=== PATIENT | female | born 1975 | race Caucasian/White ===

== ENCOUNTER 2023-03-28 10:52 | Observation (INO) ==
--- NOTE | 2023-03-19 13:10 | History & Physical Report ---
Date of Service February Assessment & Plan (1) Mandibular retrognathism: (2) Excessive horizontal overlap: (3) Mandibular hypoplasia: (4) Failing dental implant: History of Present Illness Primary Care Provider: VIJI Mcelroy Ilana is now ready to consider the surgery to correct her jaw deformity and functional impairments. 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 She would like to plan the surgery during her off season which is between Jan and early April. I updated her case and changes which will effect the final treatment plan as well as restorationism of her teeth post op. I have finalize the treatment plan with Dr Melissa Sneed ([place]) A CT was was reviewed to help plan the surgery and evaluate the bone quality and nerve relationship to the osteotomy sites. The surgical appliance was placed and checked for fit. 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 Clinical and radiographic examination revealed that Ilana has a significant skeletal malocclusion. This is associated with an abnormal growth of both the upper and lower jaw. Mandibular Retrognathism M26.04 Deep bite closed vertical M26.23 The goal of this proposed jaw surgery is to re-establish the functional capacity of the patient`s bite. This has been brought about primarily by an unbalanced jaw relationship and resulting lack of occlusion. My patient`s main complaint is difficulty with mastication and chronic lip,tongue and cheek bitting. The primary goal of this treatment is to restore normal function through restorationism of proper jaw position. The deformity is not correctable by orthodontic alone and surgery is medically necessary.We are preforming this procedure to obtain a function jaw relationship. The planed surgery will be preformed in the OR of [facility] in [place], [place]. A 23 hour observation following the surgery is planned.This surgery should be considered medically necessary for the patient`s well-being. Medical Indication For Reconstructive Jaw Surgery The discrepancy between the upper and lower jaw has resulted in a significant skeletal deformity. I propose the following surgical procedures to correct this skeletal malocclusion. Sagittal Osteotomy CPT 28091 Surgical [address] interdental fixation CPT 22944 I had the opportunity to evaluate Ilana Pereira in my office for an obvious jaw deformity. Clinical and radiographic examination revealed a significant facial skeletal malocclusion which can not be correct by standard orthodontic management alone. As a result of this deformity a significant functional impairment in mastication exists. This is associated with a horizontal, vertical and transverse deformity of the maxilla and mandible. The patient has only 6 upper teeth and full dental/implant reconstruction on the lower. The dentist who placed the implants had no regard for her significant class II deep bite. The patient has the following diagnostic codes: Mandibular Retrognathism with deep bite M26.04 The discrepancy between the upper and lower jaws has resulted in the following significant skeletal deformity: It is impossible to reconstruct her dentition with her present dental facial deformity. My proposed treatment plan is as follows: Review case with her new dentist Dr Sneed. new models and CT scan need to determine condition of the remaining upper teeth some of the upper posterior implants are not stable Bilateral Sagittal osteotomy CPT 79763 final dental reconstruction once the jaw is lined up for ideal function As a result of the abnormal growth between the upper and lower jaws normal jaw function is not possible and this is contributing to the functional impairment. The goal of this proposed jaw surgery is to re-establish and improve the functional capacity of our patient`s abnormal bite and jaw function. 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 Major Discrepancies:retrognathic lower jaw, poor dental occlusion lower/upper teeth\\ Major Discrepancies: A-P Retrognathism with severe deep bite of over 8 mm Vertical Deep bite of almost 100 % Transverse: none Based on the established guidelines from the [place] [employer] the severity of this deformity precludes adequate treatment through dental treatment alone. Medical necessity has been established by the significant deformity and the resulting functional impairment in mastication. Inability to close jaws into a normal relationship due to the severe skeletal deformity. Skeletal malocclusion due to the skeletal deformity resulting in a traumatic occlusion Chronic mastication difficulty due to the skeletal deformity. Soft tissue trauma to tongue, lips and cheeks due to the traumatic occlusion. X ray evaluation: Cephalometric analysis---Class II deep bite Panorex:---TMJ all WNL, failing implants upper jaw, fractured # 10, sinus all WNL, good bone anatomy, nerve position/sinus good. Treatment plan: Sagittal split advancement CPT 79554/ ICD10 M26.04 Surgical splints CPT 04752 Fixation wires CPT 80650 The above mentioned surgical procedure is not being preformed for any type of cosmetic reasons. The patient has a true jaw deformity that is preventing him/her from functioning in a normal manner. The proposed surgery is for functional rehabilitation of the skeletal alignment of the patient`s jaw. Oral Maxillofacial Surgery Exam Present Complaint: As a result of skeletal Class II deep bite and poor planing regarding the dental implants the case can not be completed. There is no space for the upper posterior teeth as a result of the skeletal class II and deep bite. Dr Sneed her new dentist suggested she see me to discuss options. tooth # 10 has now fractured to the bony crest and is no longer restorable--extraction needed with ? socket graft The upper right last implant failed and the upper left implants is failing Oral Exam: Finding-full reconstruction lower, implants stable Upper 6 remaining upper teeth not sure of prognosis or usp status- according to Ilana the plan now is to Remove the remaining natural teeth on upper and eventually place an implant retained upper bridge. Some of the upper implants are not stable--need to review which implants are failing and remove. No vertical space for reconstruction I will need to correct the vertical and horizontal with the OG surgery presently her skeletal relationship prevents dental restorationism. Imaging: Panorex: The Panorex X Ray was reviewed, there were no abnormal findings other then the implants that are failing and show bone loss There is a fractured # 10 prognosis of remaining upper teeth is questionable The TMJ are well positioned and no evidence of bony pathology. The sinus, supporting bone all WNL Evaluated the nerve/sinus relationship will ne done with a CT scan to allow finalization for treatment planning. The remaining upper teeth will be removed and 2 additional implants will be placed for a removable upper implant support denture. Soft tissue: floor of the mouth, tongue, hard/soft palate, posterior pharyngeal area all with in normal limits, no pathology or abnormal findings noted. No lesions noted that require follow up or Bx. Oral Care: Overall oral care is good Occlusion: Class Class II deep bite failing teeth and implants TMJ exam: No pop, clicking, pain, good ROM, No history of TMJ injury or dysfunction Periodontal exam: Healthy gingival tissue without evidence of periodontal pathology. She is maintaining her lower dental implant restorationism well Head/Neck exam: Neck is supple, FROM, Able to extend and flex neck w/o difficulty, no masses, no abnormalities, no airway issues, no evidence of sleep apnea. Treatment Plan: Insurance coverage regarding future orthognathic surgery (sagittal advancement) I have received from Dr Sneed, [place], model surgery surgical guides--I did a general review with Dr Sneed a more extensive discussion will be done after we determine if there is coverage for the surgery. Set up with general anesthesia in hospital due to complexity of the procedure plan for future upper reconstruction I reviewed the treatment plan and consent with the patient. Understanding was expressed. Time was given for questions regarding the surgery, risks and post op care. Risks discussed: Bleeding,Pain,swelling,infection, dry socket, delayed healing, nerve injury to face,lips,tongue,chin area which could be permanent (rare). TMJ, jaw stiffness, change in bite (rare), ear pain (referred). Sinus problems like fistula or infection. Relationship of nerve/sinus and risk of jaw fracture associated with the OG surgery Home care reviewed: tooth brushing, rinsing, follow up care with Dr Ramirez. diet=[id number] dental. Discussed activity level, driving/work while on Rx pain Meds. Discussed alternative to treatment--procedure as planned, Do not do surgery Surgery to be set up once insurance is verified for coverage and Dr Ramirez reviews with Dr Sneed. Physical Exam Physical Exam ConstitutionalWD/WN, vitals as above EyesPERRL, conjunctivae normal, anicteric sclerae MouthClass II deep bite, fractured # 10, failing dental implants (upper) Neck tracheamidline, no thyromegaly Thyroid:normal thyroid Respiratorynormal respiratory effort, lungs clear to auscultation Auscultation: lungs clear to auscultation bilaterally Cardiovascular RRR, no murmur, no edema Rate/Rhythm: regular rate and regular rhythm Gastrointestinal (Abdomen)normal bowel sounds, soft, nontender, no hepatosplenomegaly Musculoskeletalno cyanosis or clubbing, extremities motor strength 5/5 Skinno rashes, warm and dry NeurologicPERRL, EOMI, accommodation nl, no face palsy, no dysarthria Cranial Nerves:sense of smell intact, PERRL, normal accommodation, EOM intact bilaterally, normal facial strength, tongue midline, normal gag reflex, normal hearing, able to rotate head bilaterally, able to elevate shoulders bilaterally, no nystagmus and symmetric palate elevation PsychiatricA+Ox3, euthymic affect Orientation: cooperative Lymphaticno cervical or axillary lymphadenopathy Review of System reviewed and updated February Constitutional:Constitutional: + fatigue; no fever, no chills, no sweats, no weight loss and no weight gainEyes: Eyes: + corrective lenses and + spots in vision; no diplopia, no decreased night vision, no eye pain and no problem reported Ear, Nose, Mouth, Throat:Ear, Nose, Mouth, Throat: + ear pain and + dysphagia; no hearing loss, no nasal discharge, no sore throat and no hoarseness Respiratory: Respiratory: + cough; no dyspnea, no dyspnea on exertion, no hemoptysis and no wheezingCardiovascular: Cardiovascular: no chest pain, no palpitations, no lightheadedness and no edema Gastrointestinal:Gastrointestinal: + constipation and + diarrhea/loose stools; no abdominal pain, no belching, no bloating, no heartburn, no nausea, no vomiting, no cramping, no fecal incontinence and no blood in stools Genitourinary (Female):Genitourinary (Female): no dysuria, no difficulty urinating, no urinary frequency, no urinary incontinence and no hematuria Musculoskeletal:Musculoskeletal: + back pain, + neck pain, + joint pain and + stiffnessIntegumentary: Integumentary: no boil, no rash, no changing lesions and no dry skinNeurologic: Neurologic: + tingling, + numbness, + dizziness and + headache(s); no seizure- like activity, no syncope and no memory lossPsychiatric:Psychiatric: no depression, no abnormal sleep pattern, no anxiety and no confusionEndocrine: Endocrine: no polydipsia, no polyphagia, no polyuria, no cold intolerance and no heat intolerance Hematologic / Lymphatic:Hematologic / Lymphatic: + easy bleeding and + easy bruising; no coagulopathy and no lymphadenopathy PFSH Medical History(Updated 11/11/21 @ 15:49 by Lamar Noel RN) Pilar cyst Surgical History(Updated 11/11/21 @ 15:49 by Lamar Noel RN) History of esophagogastroduodenoscopy (EGD) S/P excision of lipoma Family History(Updated 11/11/21 @ 16:01 by Lamar Noel RN) Other Colorectal cancer Diabetes Stroke Social History(Updated 11/11/21 @ 16:01 by Lamar Noel RN) Smoking Status: Never smoker Hx Alcohol Use: Yes Alcohol type: wine Alcohol Intake Frequency: Monthly or Less Hx Substance Use: No Preferred Language: American marital status: Single current occupational status: employed 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 How many Children do You have: 0 during the past year weight has: decreased > 10 lbs Results Reviewed Results Reviewed Results Common Labs: No Data to Display Nursing Visit Reasons:NEW Jaw surgery Consult Allergies No Known Allergies Allergy (Verified 11/11/21 15:48) Medications acetaminophen-caffeine 500 mg-65 mg tablet (Excedrin Tension Headache) 1 tab PO Q12H PRN 11/11/21 [History Confirmed 11/11/21] Allergies No Known Allergies Allergy (Verified 10/11/22 15:26) Medications rimegepant 75 mg disintegrating tablet (Nurtec ODT) 75 mg PO Q OTHER DAY 10/11/22 [History Confirmed 10/11/22] topiramate 25 mg tablet (Topamax) 25 mg PO DAILY 10/11/22 [History Confirmed 10/11/22] Coding Diagnoses 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 Failing dental implant M27.69 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 CPT Codes RECONST LWR JAW W/FIXATION - 86978 ([id number]) PREPARE FACE/ORAL PROSTHESIS - 67124 ([id number]) Allergies Allergy/AdvReac Type Severity Reaction Status Date / Time No Known Allergies Allergy Verified 03/28/23 11:10 Home Medications Medication Instructions Recorded Confirmed Type rimegepant 75 mg disintegrating 75 mg PO Q OTHER DAY 10/11/22 03/28/23 History tablet (Nurtec ODT) amoxicillin 875 mg-potassium 1 tab PO Q12H #20 tabs 03/20/23 03/28/23 Rx clavulanate 125 mg tablet chlorhexidine gluconate 0.12 % 15 ml mucous membrane BID pre and 03/20/23 03/28/23 Rx mouthwash (Peridex) post op oral surgery #473 mL hydrocodone 5 mg-acetaminophen 325 1 tab PO Q4H PRN pain #20 tabs 03/20/23 03/28/23 Rx mg tablet ondansetron HCl 8 mg tablet 8 mg PO Q8H PRN nausea and 03/20/23 03/28/23 Rx vomiting #10 tabs amitriptyline 10 mg tablet 10 mg PO HS 03/21/23 03/28/23 History etonogestrel 68 mg subdermal 68 mg subdermal UD 03/21/23 03/28/23 History implant (Nexplanon) omeprazole 40 mg capsule,delayed 40 mg PO HS 03/21/23 03/28/23 History release Past Med/Surg History Medical History History of palpitations negative cardiac workup in the past - was told it may be related to esophageal spasms. "comes and goes" Hx of osteopenia History of ovarian cyst reason for nexplanon History of COVID-15 Jul 2022 - flu symptoms - no hospitalization. no current issues. Migraine History of anesthesia reaction as a teenager patient had an EGD with dilation and had a terrible experience, patient remembers attempting to remove the scope. 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 Surgical History S/P excision of lipoma straight local only - History of esophagogastroduodenoscopy (EGD) dilation (as a teenager, states she had a horrible experience and refuses to have any further dilation) Family History Other Colorectal cancer Diabetes No family history of adverse response to anesthesia Stroke Social History Smoking Status: Never smoker Second Hand Exposure: No; Do You Dip or Chew Tobacco: No; Tobacco Cessation Education Requested by Patient: No Hx Alcohol Use: Yes Alcohol type: wine Alcohol Intake Frequency: Monthly or Less Hx Substance Use: No Preferred Language: American Communication Ability: Effective Surgical Elastic Knitter Required: No Beliefs That Will Affect Care: None marital status: Single Current Living Situation: Family Current Living Situation Comment: lives with parents, father has dementia, elderly mother current occupational status: employed 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 How many Children do You have: 0 Other Information That Helps Us Care for You: No Feels Safe at Home: Yes Safety Concerns: Feels Safe At This Time Diet: regular during the past year weight has: decreased > 10 lbs Assistive Devices: None PG Care Time/CCT Total # of Minutes Spent Total Time Spent with Patient: Total time spent is greater than 50% in coordination of care (as documented) at patient's floor/unit and/or counseling patient: Coding Level of Care Code None Diagnoses 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
--- NOTE | 2023-03-22 09:22 | Anesthesiology Consultation ---
Date of Service March 22, 2023 Assessment & Plan (1) Encounter for pre-operative examination: Chart Review Chart Review: Acceptable Risk for Surgery (pending EKG DOS ) and Patient NOT seen in Pre Admission Testing Patient with chronic dysphagia- can only tolerate certain liquids and foods- patient states surgeon aware. - Check test AM DOS - Check EKG stat DOS - Will leave to anesthesiologist discretion if repeat platelet count needed -Infectious Disease screening: Per PAT nursing assessment on 03/21/23. No known infectious disease contacts in past 10 days or current infectious disease symptoms. No recent travel outside the country. History Surgery Operation Date: 03/28/23 11:20 Proposed Procedures p Sagittal Splint Lower Jaw Osteotomy, Placement of Surgical Splint and Fixation Wires, Removal Failing Dental Implants - Sean Ramirez DMD Height/Weight Height: 5 ft 9 in Weight: 68.039 kg Allergies Allergy/AdvReac Type Severity Reaction Status Date / Time No Known Allergies Allergy Verified 03/21/23 07:47 Medications Home Medications Medication Instructions Recorded Confirmed Last Taken rimegepant 75 mg disintegrating 75 mg PO Q OTHER DAY 10/11/22 03/21/23 Unknown tablet (Nurtec ODT) amoxicillin 875 mg-potassium 1 tab PO Q12H #20 tabs 03/20/23 Unknown clavulanate 125 mg tablet chlorhexidine gluconate 0.12 % 15 ml mucous membrane BID pre and 03/20/23 Unknown mouthwash (Peridex) post op oral surgery #473 mL hydrocodone 5 mg-acetaminophen 325 1 tab PO Q4H PRN pain #20 tabs 03/20/23 Unknown mg tablet ondansetron HCl 8 mg tablet 8 mg PO Q8H PRN nausea and 03/20/23 Unknown vomiting #10 tabs amitriptyline 10 mg tablet 10 mg PO HS 03/21/23 03/21/23 Unknown etonogestrel 68 mg subdermal 68 mg subdermal UD 03/21/23 03/21/23 Unknown implant (Nexplanon) omeprazole 40 mg capsule,delayed 40 mg PO HS 03/21/23 03/21/23 Unknown release Past Medical History Medical History (Updated 03/22/23 @ 09:32 by Christine Whitt PA-C) Dysphagia - severe - unable to swallow pills at all, patient must crush her pills to take them - chronic- since teens (due to untreated reflux from childhood and strep virus) - can only tolerate certain foods and liquids (typically drinks seltzer drinks) Excessive horizontal overlap History of anesthesia reaction as a teenager patient had an EGD with dilation and had a terrible experience, patient remembers attempting to remove the scope. History of COVID-15 Jul 2022 - flu symptoms - no hospitalization. no current issues. History of ovarian cyst reason for nexplanon History of palpitations negative cardiac workup in the past - was told it may be related to esophageal spasms. "comes and goes" Hx of osteopenia Mandibular hypoplasia Mandibular retrognathism Migraine Past Family History Family History Other Colorectal cancer Diabetes No family history of adverse response to anesthesia Stroke Past Surgical History Surgical History (Updated 03/22/23 @ 09:37 by Christine Whitt PA-C) History of esophagogastroduodenoscopy (EGD) dilation (as a teenager, states she had a horrible experience and refuses to have any further dilation) S/P excision of lipoma straight local only - Social History Smoking Status: Never smoker Do You Dip or Chew Tobacco: No Hx Alcohol Use: Yes Alcohol type: wine alcohol intake frequency: holidays/special occasions only Hx Substance Use: No substance use type: does not use Testing Laboratory Results 03/21/23= WBC: 6.0 H/H: 14.2/42.9 PLATELETS: Unable to determine due to platelet clumping; platelet count appears to be adequate per report PT: 10.9 PTT: 35.7 INR: 0.9
[2023-03-28] MEDS: LACTATED RINGER'S 1,000 ML IV SCH (12:05)
[2023-03-28] MEDS: LR 15ML/HR IV SCH (12:05)
--- NOTE | 2023-03-28 12:12 | History & Physical Bridge Note ---
Date of Service March 28, 2023 History & Physical Bridge Note I have examined the patient, reviewed the History & Physical and in the interval since the performance of the History & Physical I have noted the following changes of clinical significance: no changes noted
--- NOTE | 2023-03-28 12:20 | Electrocardiogram Report ---
Test Reason : Blood Pressure : / mmHG Vent. Rate : 097 BPM Atrial Rate : 097 BPM P-R Int : 138 ms QRS Dur : 092 ms QT Int : 380 ms P-R-T Axes : 064 071 054 degrees QTc Int : 482 ms Normal sinus rhythm RSR' or QR pattern in V1 suggests right ventricular conduction delay Nonspecific ST and T wave abnormality Prolonged QT Abnormal ECG No previous ECGs available Confirmed by Rc Pérez ([id number]) on 03/28/2023 12:20:00 PM Referred By: Sean Ramirez Confirmed By:Rc Pérez
[2023-03-28] MEDS ORDERED: PROMETHAZINE HCL 6.25 MG in SODIUM CHLORIDE 0.9% 50 ML IV PRN (13:04)
[2023-03-28] MEDS ORDERED: ONDANSETRON INJ 2 MG/ML 2 ML VIAL IV PRN (13:04)
[2023-03-28] MEDS ORDERED: ePHEDrine sulfate 50 MG/ML AMP IV PRN (13:04)
[2023-03-28] MEDS ORDERED: ATROPINE SULFATE 0.1 MG/ML 10ML SYR IV PRN (13:04)
[2023-03-28] MEDS ORDERED: ROCURONIUM BROMIDE 10 MG/ML 5 ML VIAL IV ONE (13:19)
[2023-03-28] MEDS ORDERED: PROPOFOL IV EMULSION 10 MG/ML 20 ML VIAL IV ONE (13:19)
[2023-03-28] MEDS ORDERED: ONDANSETRON INJ 2 MG/ML 2 ML VIAL ONE (13:19)
[2023-03-28] MEDS ORDERED: LIDOCAINE 2% 2 ML VIAL/AMP(20MG/ML) INFIL ONE (13:19)
[2023-03-28] MEDS ORDERED: MIDAZOLAM HCL 1 MG/ML 2ML VIAL ONE (13:20)
[2023-03-28] MEDS ORDERED: fentaNYL citrate PF 100 MCG/2 ML VIAL ONE (13:20)
[2023-03-28] MEDS ORDERED: OXYMETAZOLINE 0.05% 30 ML BTL ONE (13:54)
[2023-03-28] MEDS: ceFAZolin 2000MG 2,000 MG/15 ML SYR IV SCH (14:13)
[2023-03-28] MEDS ORDERED: DexMEDEtomidine HCL IV 100 MCG/ML VIAL IV ONE (14:30)
[2023-03-28] MEDS ORDERED: DEXAMETHASONE SOD INJ 4 MG/ML VIAL ONE (14:40)
[2023-03-28] MEDS: CHLORHEXIDINE GLUCONATE 0.12% 480 ML MT ONE (14:53)
[2023-03-28] MEDS: BUPIVACAINE/EPINEPHRINE 0.5% 1:200,000 1.8 ML CARP ONE (14:53)
[2023-03-28] MEDS ORDERED: GLYCOPYRROLATE 0.2 MG/ML VIAL ONE (15:38)
[2023-03-28] MEDS ORDERED: NEOSTIGMINE METHYLSULFATE 1 MG/ML 10ML VIAL ONE (15:38)
[2023-03-28] MEDS ORDERED: ACETAMINOPHEN SUSP 325 MG/10.15 ML UDC PO PRN (17:07)
[2023-03-28] MEDS ORDERED: OXYMETAZOLINE 0.05% 30 ML BTL PRN (17:07)
--- NOTE | 2023-03-28 17:19 | Post Operative Brief Note ---
PG Immediate Post Op with CF Date of Surgery March 28, 2023 Pre & Post Diagnosis Operation Date: 03/28/23 12:40 Pre-Op Diagnosis: (1) Mandibular retrognathism (2) Excessive horizontal overlap (3) Mandibular hypoplasia (4) Failing dental implant Post-Op Diagnosis: (1) Mandibular retrognathism (2) Excessive horizontal overlap (3) Mandibular hypoplasia (4) Failing dental implant I identified the patient and participated in the time-out.: Yes Procedure Operation Date: 03/28/23 12:40 Actual Procedures p Sagittal Splint Lower Jaw Osteotomy, Placement of Surgical Splint and Fixation Wires, Removal Failing Dental Implants - Sean Ramirez, MARY Surgeon Sean Ramirez DMD Decorating Machine Operator none Estimated Blood Loss 25 Findings Consistent with Post-Op Diagnosis severe retrognathic lwer jw Anesthesia Type General Complications none
[2023-03-28] MEDS: fentaNYL citrate PF 100 MCG/2 ML VIAL IV PRN (17:25)
--- OUTSIDE RECORDS SUMMARY | 2023-03-28 17:30 | External Medical Summary | Continuity of Care Document ---
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 Unavailable Sean Ramirez DMD Care Team Information Receiv er [phone] Problems Active Problems Provider Date Refractory migraine with aura ARLEN Toribio Onset: 02/22/2013 Gastroesophageal reflux disease Remigio Webster JR, PA-C Onset: 02/22/2013 Social History Type Date Description Comments Sex Female Tobacco Use Reviewed: 11/08/22 Never Smoked Cigarette s Tobacco Use Reviewed: 11/08/22 Never Smoked Cigars Tobacco Use Reviewed: 11/08/22 Never Smoked A Pipe Smoking Status Reviewed: 01/14/23 Never Smoked A Pipe Smokeless Tobacco 11/08/2022 Never Used Smokeless To bacco ETOH Use Denies alcohol use Recreational Drug Use Denies Drug Use Seat Belt/Car Seat always uses car seat Allergies and adverse reactions Active Allergies Criticality Reaction | Severity Comments Date Dramamine Unable to assess criticality THROAT SWELLS. 06/01/2010 Medications Active Medications SIG Qnty Indications Order ing Provider Date [id number] Capsules DR take 1 capsule daily for esophageal reflux 90caps K21.9 Jake Rush MD 03/02/2023 [id number] Tablets take 3 tablets for days 1-3, take 2 tablets for days 4-6, take 1 tablet for days 7-10 19tabs T63.461A Jake Rush MD 12/01/2022 [id number] Implant [facility]; 08/24/2020 Lorraine Rowley PA-C [id number] Tablets Dispers 1 at onset migraine. only 1 dose/24 hours Unknown Pantoprazole [id number] Tablets DR 1 by mouth every day K21.9 Unknown Amitriptyline [id number] Tablets take 1 tablet by mouth everyday at bedtime Unknown Immunizations CPT Code Status Date Vaccine Lot # [id number] Given 01/14/2023 Sarscov2 Vaccin e 50 mcg/0.5 ML For Im Use 12 Yrs And Older [id number] Given 01/14/2023 Influenza Vacci ne Quadrivalent Preser/Antibiotic Free Im Use [id number] 06762 Given 02/01/2022 Moderna Sars-Co v-2 (Covid-19) Vaccine, BiValent Booster 12y+ [id number] 43870 Given 02/01/2022 Influenza Virus Vaccine, Quadrivalent (Cciiv4), Derived From Cell [id number] 46180 Given 02/01/2022 Tdap (Tetanus, diphtheria & acel. pertussis) Adacel or Boostrix [id number] 16079 Given 02/08/2021 Moderna Covid-1 9 Vaccine 50mcg Booster-EMR Doc Only [id number] 15932 Given 02/08/2021 Influenza Virus Vaccine, Quadrivalent (Cciiv4), Derived From 1 Given 06/01/2020 Pfizer Sars-Cov -2 (Cov-19) vacc 30mcg/0.3ML 12Y+ EMR Doc Only [id number] Given 05/11/2020 Pfizer Sars-Cov -2 (Cov-19) vacc 30mcg/0.3ML 12Y+ EMR Doc Only [id number] Given 11/28/2013 Tdap (Tetanus, diphtheria & acel. pertussis) Adacel or Boostrix [id number] Refused 03/12/2014 Influenza Virus Vaccine, Quadrivalent, Im Use Vital Signs Date Vital Result Comment 12/01/2022 3:08pm BP Systolic 106 mmHg BP Diastolic 80 mmHg Body Temperature 98.1 F Heart Rate 72 /min Respiratory Rate 14 /min Weight 128.00 lb Weight 58.061 kg Height 69.5 inches 5'9.50" BMI (Body Mass Index) 18.6 kg/m2 O2 % BldC Oximetry 98 % [place] Body Weight 145 lb 11/08/2022 8:08am BP Systolic 120 mmHg BP Diastolic 80 mmHg Heart Rate 64 /min Weight 127.50 lb Weight 57.834 kg Height 69.5 inches 5'9.50" BMI (Body Mass Index) 18.6 kg/m2 O2 % BldC Oximetry 99 % ra [place] Body Weight 145 lb Results Test Acquired Date Facility Test Result H/L Range [place] Laboratory test finding 03/21/2023 [facility] [address] [place] [address] [phone] PTT <pending> BMP 11/01/2022 [facility] [address] [place], [place] [id number] [phone] Glucose 93 mg/dL 70-110 BUN 20 mg/dL 6-25 Creatinine 1.1 mg/dL 0.5-1.2 Sodium 140 mEq/L 135-145 Potassium 3.5 mEq/L 3.5-5.0 Chloride 106 mEq/L 95-107 Co-2 23 mEq/L Low 24-31 Calcium 9.9 mg/dL 8.5-10.6 GFR 57 ML/MIN/1.73SQM Low >60 Lipid 11/01/2022 [facility] [address] [place] [address] [phone] Cholesterol 153 mg/dL 0-200 1 Triglyceride 88 mg/dL 0-150 2 HDLD 66 mg/dL See Comment 3 Measured LDL 63 mg/dL 0-130 4 Calc VLDL 17.6 mg/dL See Comment 5 Chol/HDL 2.3 RATIO See Comment 6 Non-HDL 87 mg/dL See Comment 7 Lyme Disease AB W/RFX To Blot (Igg,Igm) 09/27/2022 [facility] [place] [address] [phone] Lyme AB Screen <0.90 index Normal 8 Tick-Borne Disease, Antibody Panel 09/27/[address] [facility] [place] [address] [phone] A. Phagocytophilum AB (Igg) <1:64 <1: 64 A. Phagocytophilum AB (Igm) <1:20 <1:20 Interpretation see note 9 Comment see note 10 Babesia Duncani (Wa1) Antibody (Igg), Ifa <1:256 Kalpana l 11 Babesia Microti AB (Igg) <1:64 titer <1:64 Babesia Microti AB (Igm) <1:20 titer <1:20 Interpretation see note 12 Lyme AB Screen <0.90 Index <0.90 13 E. Chaffeensis AB Igg <1:64 <1:64 E. Chaffeensis AB Igm <1:20 <1:20 Interpretation see note 14 Comment see note 15 Laboratory test finding 09/27/20[address] [facility] [place] [address] [phone] Clinical PDF Report [id number] SEE IMAGE Laboratory test finding 09/26/2022 [facility] [address], [address] [place] [address] [phone] Cologuard Negative Negative 16 Lupus Anticoagulant Evaluation 09/20/[address] [id number] [phone] DRVVT Screen 34 17 PTT-LA Screen 39 18 Lupus Anticoagulant see note 19 Laboratory test finding 09/20/2022 [facility] [address] [place] [address] [phone] Sed Rate 1 0-20 Jamila NEGATIVE C-Reactive Prot 0.029 mg/dL 0.000-0.700 1 CHOLESTEROL Less than 200mg/dl Low risk 201-239 mg/dl Borderline risk Equal to or greater 240mg/dl High risk 2 TRIGLYCERIDES Less than 150mg/dl Normal 150-199mg/dl Borderline 200-499mg/dl High Greater than 500mg/dl Very High 3 HDL <40mg/dl Elevated Risk 41-59mg/dl Risk >=60mg/dl Least Risk 4 LDL <100mg/dl Optimal 100-129mg/dl Near Optimal 130-159mg/dl Borderline High 160-189mg/dl High >=190 Very High 5 VLDL Less than 30mg/dl Normal 6 CHOL/HDL <4.0 Optimal 4.0-5.0 Borderline >6.0 High Risk 7 NON-HDL 30mg/dl higher than LDL Target 8 Index Interpretation ----- < 0.90 Negative 0.90-1.09 Equivocal > 1.09 Positive As recommended by the Food and Drug Administration (FDA), all samples with positive or equivocal results in a Borrelia burgdorferi antibody screen will be tested using a blot method. Positive or equivocal screening test results should not be interpreted as truly positive until verified as such using a supplemental assay (e.g., B. burgdorferi blot). The screening test and/or blot for B. burgdorferi antibodies may be falsely negative in early stages of Lyme disease, including the period when erythema migrans is apparent. 9 Antibody Not Detecte d 10 Anaplasma phagocytop hilum is the tick-borne agent causing Human Granulocytic Ehrlichiosis (HGE). HGE is distinct and separate from Human Monocytic Ehrlichiosis (HME), caused by Ehrlichia chaffeensis. Serologic crossreactivity between A. phagocyto- philum and E. chaffeensis is minimal (5-15%). This test was developed and its analytical performance characteristics have been determined by [facility], [place], [place]. It has not been cleared or approved by the U.S. Food and Drug Administration. This assay has been validated pursuant to the CLIA regulations and is used for clinical purposes. 11 REFERENCE RANGE: <1: 256 INTERPRETIVE CRITERIA: <1:256 Antibody not detected > or = 1:256 Antibody detected Babesia duncani, also known as WA1, has been associated with symptoms similar to those caused by Babesia microti. Little, if any, cross-reactivity occurs between Babesia microti and WA1. This test was developed and its analytical performance characteristics have been determined by [facility]. It has not been cleared or approved by FDA. This assay has been validated pursuant to the CLIA regulations and is used for clinical purposes. 12 Antibody Not Detecte d Elevated antibody levels to B. microti indicate exposure to the organism. Human babesiosis infection is transmitted by the bite of an infected Ixodes tick or less frequently from transfusion with blood from an infected donor. Definitive diagnosis is made by identifying intraerythrocytic organisms in peripheral blood. In patients with low parasitemia, antibody detection by IFA is recommended. IgG levels greater than or equal to 1:1024 can be detected in acute phase patients with parasites in blood smears. The IFA assay can be used as a seroepidemiologic tool to study the frequency and distribution of B. microti in endemic areas especially in persons with mixed infections also involving Borrelia burgdorferi. This test was developed and its analytical performance characteristics have been determined by [facility], [place]. It has not been cleared or approved by the U.S. Food and Drug Administration. This assay has been validated pursuant to the CLIA regulations and is used for clinical purposes. 13 Reference ranges: Index Interpretation ----- <0.90 Negative 0.90-1.09 Equivocal >1.09 Positive As recommended by the Food and Drug Administration (FDA), all samples with positive or equivocal results in a Borrelia burgdorferi antibody screen will be tested using a blot method. Positive or equivocal screening test results should not be interpreted as truly positive until verified as such using a supplemental assay (e.g., B. burgdorferi blot). The screening test and/or blot for B. burgdorferi antibodies may be falsely negative in early stages of Lyme disease, including the period when erythema migrans is apparent. The Code of [place], Article 1 of Chapter 5 of Title 32.1, section 32.1-137.06, requires that the following language must be included on every Lyme disease test report issued by a [place] laboratory: Patients undergoing a Lyme disease test should be aware that Lyme disease tests vary and may produce results that are inaccurate. This means a patient may not be able to rely on a positive or negative result. Health care providers are encouraged to discuss Lyme disease test results with the patient for whom the test was ordered. 14 Antibody Not Detecte d 15 Ehrlichia chaffeenis has been identified as the causative agent of Human Monocytic Ehrlichiosis (HME). Infected individuals produce specific antibodies to E. chaffeensis that can be detected by an immuno- fluorescent antibody (IFA) test. Single IgG IFA titers of 1:64 or greater indicate exposure to E. chaffeensis. A four-fold rise in IgG titers between acute and convalescent samples and/or the presence of IgM antibody against E. chaffeensis suggest recent or current infection. This test was developed and its analytical performance characteristics have been determined by [facility], [place]. It has not been cleared or approved by the U.S. Food and Drug Administration. This assay has been validated pursuant to the CLIA regulations and is used for clinical purposes. 16 NEGATIVE TEST RESULT . A negative Cologuard result indicates a low likelihood that a colorectal cancer (CRC) or advanced adenoma (adenomatous polyps with more advanced pre-malignant features) is present. The chance that a person with a negative Cologuard test has a colorectal cancer is less than 1 in 1500 (negative predictive value >99.9%) or has an advanced adenoma is less than 5.3% (negative predictive value 94.7%). These data are based on a prospective cross-sectional study of 10,000 individuals at average risk for colorectal cancer who were screened with both Cologuard and colonoscopy. (Cole Evans. et al, N Engl J Med 2014;370(14):3891-2538) The normal value (reference range) for this assay is negative. COLOGUARD RE-SCREENING RECOMMENDATION: Periodic colorectal cancer screening is an important part of preventive healthcare for asymptomatic individuals at average risk for colorectal cancer. Following a negative Cologuard result, the British Cancer Society and U.S. Multi-Society Task Force screening guidelines recommend a Cologuard re-screening interval of 3 years. References: British Cancer Society Guideline for Colorectal Cancer Screening: https://www.cancer.org/cancer/umneh-dseumx-tjrpfd/hxxxlohnh-tqerpnuxt-jkopftu/ac s- recommendations.html.; Kev MALDONADO, Suhail PICKETT, Karri ThomasK, Colorectal Cancer Screening: Recommendations for Physicians and Patients from the U.S. Multi- Society Task Force on Colorectal Cancer Screening , Am J Gastroenterology 2017; 112:1345-1937. TEST DESCRIPTION: Composite algorithmic analysis of stool DNA-biomarkers with hemoglobin immunoassay. Quantitative values of individual biomarkers are not reportable and are not associated with individual biomarker result reference ranges. Cologuard is intended for colorectal cancer screening of adults of either sex, 45 years or older, who are at average-risk for colorectal cancer (CRC). Cologuard has been approved for use by the U.S. FDA. The performance of Cologuard was established in a cross sectional study of average-risk adults aged 50-84. Cologuard performance in patients ages 45 to 49 years was estimated by sub-group analysis of near-age groups. Colonoscopies performed for a positive result may find as the most clinically significant lesion: colorectal cancer [4.0%], advanced adenoma (including sessile serrated polyps greater than or equal to 1cm diameter) [20%] or non- advanced adenoma [31%]; or no colorectal neoplasia [45%]. These estimates are derived from a prospective cross-sectional screening study of 10,000 individuals at average risk for colorectal cancer who were screened with both Cologuard and colonoscopy. (Cole Mallory et al, N Engl J Med 2014;370(14):7227-4212.) Cologuard may produce a false negative or false positive result (no colorectal cancer or precancerous polyp present at colonoscopy follow up). A negative Cologuard test result does not guarantee the absence of CRC or advanced adenoma (pre-cancer). The current Cologuard screening interval is every 3 years. (British Cancer Society and U.S. Multi-Society Task Force). Cologuard performance data in a 10,000 patient pivotal study using colonoscopy as the reference method can be accessed at the following location: www.[facility]/results. Additional description of the Cologuard test process, warnings and precautions can be found at www.Applitsoguard.com. 17 Reference range: <=4 5 Unit: sec Test performed at [facility]/[address] Director: SHREYA SHAY MD,PHD 18 Reference range: <=4 0 Unit: sec 19 Reference range: SEE COMMENT A Lupus Anticoagulant is not detected. Reference Range: Not Detected For additional information, please refer to http://education.SocialTagg.Hydra Dx/faq/GAV25n5 (This link is being provided for informational/ educational purposes only.) This interpretation is based on the following test results. Procedures Date Code Description Status 03/21/2023 26139 Electrocardiogram Complete C ompleted 03/21/2023 57001 Venipuncture Routine Complet ed 01/14/2023 G0008 Influenza Admin Completed 11/14/2022 [id number] Mammogram Completed 11/01/2022 24511 Venipuncture Routine Complet ed 09/27/2022 33676 Venipuncture Routine Complet ed 09/20/2022 70199 Venipuncture Routine Complet ed Medical Devices Description No Information Available Encounters Type Date Location Provider Dx Diagnosis Office Visit 12/01/2022 3:30p TREV Santillan T63.461A Toxic effect of venom of wasps, accidental, init Office Visit 11/08/2022 8:00a TREV Palm Z00.00 Encntr for general adult medical exam w/o abnormal findings K21.9 Gastro-esophageal re flux disease without esophagitis G47.10 Hypersomnia, unspeci fied Z12.31 Encntr screen mammog tera for malignant neoplasm of breast R10.814 Left lower quadrant abdominal tenderness R13.10 Dysphagia, unspecifi ed G43.009 Migraine w/o aura, n ot intractable, w/o status migrainosus F43.23 Adjustment disorder with mixed anxiety and depressed mood Z68.1 Body mass index [BMI ] 19.9 or less, adult Office Visit 09/27/2022 2:00p TREV Palm R53.83 Other fatigue G47.10 Hypersomnia, unspeci fied R10.814 Left lower quadrant abdominal tenderness R13.10 Dysphagia, unspecifi ed R63.4 Abnormal weight loss Assessments Date Code Description Provider 03/21/2023 Z01.818 Encounter for ot her preprocedural examination TREV Trejo 03/21/2023 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 TREV Trejo 03/21/2023 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 Stratford, POISER 11/08/2022 G47.10 Hypersomnia, unspecified Ang cynthia O. Stratford, POISER 11/08/2022 Z12.31 Encounter for sc reening mammogram for malignant neoplasm of breast Bethany O. Stratford, POISER 11/08/2022 R10.814 Left lower quadrant abdomina l tenderness Bethany O. Stratford, POISER 11/08/2022 R13.10 Dysphagia, unspecified Carlos a O. Stratford, POISER 11/08/2022 G43.009 Migraine without aura, not intractable, without status migrainosus Bethany O. Stratford, POISER 11/08/2022 F43.23 Adjustment disor maria elena with mixed anxiety and depressed mood Bethany O. Stratford, POISER 11/08/2022 Z68.1 Body mass index [BMI] 19.9 o r less, adult Bethany O. Stratford, POISER 11/01/2022 Z13.1 Encounter for sc reening for diabetes mellitus Blaise Silva MD 11/01/2022 Z13.1 Encounter for sc reening for diabetes mellitus [facility] 11/01/2022 Z13.6 Encounter for sc reening for cardiovascular disorders Blaise Silva MD 11/01/2022 Z13.6 Encounter for sc reening for cardiovascular disorders Steffi Nurse 09/27/2022 R53.83 Other fatigue Bethany O. With ee, POISER 09/27/2022 G47.10 Hypersomnia, unspecified Ang cynthia O. Stratford, POISER 09/27/2022 R10.814 Left lower quadrant abdomina l tenderness Bethany O. Stratford, POISER 09/27/2022 R13.10 Dysphagia, unspecified Carlos a O. Stratford, POISER 09/27/2022 R63.4 Abnormal weight loss Bethany O. Stratford, POISER 09/20/2022 R53.83 Other fatigue Blaise Silva MD 09/20/2022 R53.83 Other fatigue Steffi Aldridge rse Plan of Treatment Future Appointment(s):* 11/13/2023 9:00 am - [facility]V Trejo at [facility] * 11/06/2023 7:30 am - [facility] 12/01/2022 - TREV Kuo* T63.461A Toxic effect of venom of wasps, accidental (unintentional), initial encounter* New Medication:* Prednisone 20 mg - take 3 tablets for days 1-3, take 2 tablets for days 4-6, take 1 tablet for days7-10 * Comments:* 1- Gave 50mg of liquid benadryl in office to coat airway and treat histamine response. Had patient sit in clinic for total of 30 minutes to watch for airway safety. 2- Prescribed prednisone for inflammation 3- Advised to take daily 2nd generation antihistamine daily while taking prednisone as well as prn benadryl for breakthrough itching/swelling 4- Advised that if any itching of chest, mouth, throat despite medication, to go to ER 5- Patient verbalized understanding * Recommendations:* Daily zyrtec/claritin/xyzal once per day As needed, benadryl for breakthrough itching or swelling Call with questions or concerns. Functional Status Description No Information Available Mental Status Description No Information Available Referrals Refer to Dr Reason for Referral Status Appt Christopher e Sleep [id number].Burke Please schedu le patient for a PSG, followed by an MSLT. DX: Extreme daytime fatigue, hypersomnia, normal home sleep test with an AHI of 1.9 events per hour. Patient Declined 01/25/2023 [address] [facility] Closed [address] [place] [address] [phone]
--- OUTSIDE RECORDS SUMMARY | 2023-03-28 17:30 | External Medical Summary | Continuity of Care Document ---
Author Name Unknown Organization [facility] Address [address] [place] [address] Phone [phone] Care Team Providers Care Beamster Name Role Phone Cardiology - Cardiovascular Disease Care Team In formation Bad Credit Collector Unavailable Sean Ramirez DMD Care Team Information Receiv er [phone] Problems Active Problems Provider Date Refractory migraine [...] SIG Qnty Indications Order ing Provider Date [id number] Capsules DR take 1 capsule daily for esophageal reflux 90caps K21.9 Jake Rush MD 03/02/2023 [id number] Tablets take 3 tablets for days 1-3, take 2 tablets for days 4-6, take 1 tablet for days 7-10 19tabs T63.461A Jake Rush MD 12/01/2022 [id number] Implant [facility]; 08/24/2020 Lorraine Rowley PA-C [id number] Tablets Dispers 1 at onset migraine. only 1 dose/24 hours Unknown Pantoprazole Xmoncl74ta Tablets DR 1 by mouth every day K21.9 Unknown Amitriptyline IER17na Tablets take 1 tablet by mouth everyday at bedtime Unknown Immunizations CPT Code Status Date Vaccine Lot # [id number] Given 01/14/2023 Sarscov2 Vaccin e 50 mcg/0.5 ML For Im Use 12 Yrs And Older [id number] 83538 Given 01/14/2023 Influenza Vacci ne Quadrivalent Preser/Antibiotic Free Im Use [id number] 74913 Given 02/01/2022 Moderna Sars-Co v-2 (Covid-19) Vaccine, BiValent Booster 12y+ [id number] 52059 Given 02/01/2022 Influenza Virus Vaccine, Quadrivalent (Cciiv4), Derived From Cell [id number] 71764 Given 02/01/2022 Tdap (Tetanus, diphtheria & acel. pertussis) Adacel or Boostrix [id number] 18409 Given 02/08/2021 Moderna Covid-1 9 Vaccine 50mcg Booster-EMR Doc Only [id number] 15969 Given 02/08/2021 Influenza Virus Vaccine, Quadrivalent (Cciiv4), Derived From 2 Given 06/01/2020 Pfizer Sars-Cov -2 (Cov-19) vacc 30mcg/0.3ML 12Y+ EMR Doc Only [id number] Given 05/11/2020 Pfizer Sars-Cov -2 (Cov-19) vacc 30mcg/0.3ML 12Y+ EMR Doc Only [id number] Given 11/28/2013 Tdap (Tetanus, diphtheria & acel. pertussis) Adacel or Boostrix [id number] Refused 03/12/2014 Influenza Virus Vaccine, Quadrivalent, Im Use Vital Signs Date Vital Result Comment 12/01/2022 3:08pm BP Systolic 106 mmHg BP Diastolic 80 mmHg Body Temperature 98.1 F Heart Rate 72 /min Respiratory Rate 14 /min Weight 128.00 lb Weight 58.061 kg Height 69.5 inches 5'9.50" BMI (Body Mass Index) 18.6 kg/m2 O2 % BldC Oximetry 98 % [place] Body Weight 145 lb 11/08/2022 8:08am BP Systolic 120 mmHg BP Diastolic 80 mmHg Heart Rate 64 /min Weight 127.50 lb Weight 57.834 kg Height 69.5 inches 5'9.50" BMI (Body Mass Index) 18.6 kg/m2 O2 % BldC Oximetry 99 % ra [place] Body Weight 145 lb Results Test Acquired Date Facility Test Result H/L Range N ote PT Inr ANESTHESIOLOGISTS' ASSISTANT 03/21/2023 [facility] [address] [place] [address] [phone] PT 10.9 SEC 10.0-12.4 1, 2 Inr 0.9 RATIO Laboratory test finding 03/21/2023 [facility] [address] [place] [address] [phone] PTT 35.7 SEC 27.0-38.1 3 CBC W/Diff 03/21/2023 [facility] [address] [place] [address] [phone] WBC 6.0 10^3/M3 3.1-9.2 4 RBC 4.87 10^6/M3 3.70-5.50 HGB 14.2 GR/DL 11.5-16.1 HCT 42.9 % 34.5-47.8 MCV 88.2 CUMICR 82.6-95.8 MCH 29.1 PICOGR 27.9-32.9 MCHC 33.0 % 32.6-35.4 RDW 13.4 % 11.4-14.6 PLT COMMENT 10^3/M3 140-350 5 MPV 9.0 CUMICR 7.0-10.6 %Neut 57.3 % 40.0-75.0 %Lymph 31.8 % 17.0-45.0 %Sargent 8.2 % 1.0-11.0 %Eos 1.8 % 0.0-6.0 %Baso 0.9 % 0.0-2.0 #Neut 3.4 10^3/M3 1.5-8.0 #Lymph 1.9 10^3/M3 0.8-3.2 #Sargent 0.5 10^3/M3 0.0-0.8 #Eos 0.1 10^3/m3 0.0-0.4 #Baso 0.1 10^3/m3 0.0-0.2 Platelet Est PLATELET CLUMPIN <SEE NOTE> 6 BMP 11/01/2022 [facility] [address] [place], [place] [id number] [phone] Glucose 93 mg/dL 70-110 BUN 20 mg/dL 6-25 Creatinine 1.1 mg/dL 0.5-1.2 Sodium 140 mEq/L 135-145 Potassium 3.5 mEq/L 3.5-5.0 Chloride 106 mEq/L 95-107 Co-2 23 mEq/L Low 24-31 Calcium 9.9 mg/dL 8.5-10.6 GFR 57 ML/MIN/1.73SQM Low >60 Lipid 11/01/2022 [facility] [address] [place], [place] [id number] [phone] Cholesterol 153 mg/dL 0-200 7 Triglyceride 88 mg/dL 0-150 8 HDLD 66 mg/dL See Comment 9 Measured LDL 63 mg/dL 0-130 10 Calc VLDL 17.6 mg/dL See Comment 11 Chol/HDL 2.3 RATIO See Comment 12 Non-HDL 87 mg/dL See Comment 13 Lyme Disease AB W/RFX To Blot (Igg,Igm) 09/27/[address] [facility] [place] [address] [phone] Lyme AB Screen <0.90 index Normal 14 Tick-Borne Disease, Antibody Panel 09/27/[address] [facility] [place] [address] [phone] A. Phagocytophilum AB (Igg) <1:64 <1: 64 A. Phagocytophilum AB (Igm) <1:20 <1:20 Interpretation see note 15 Comment see note 16 Babesia Duncani (Wa1) Antibody (Igg), Ifa <1:256 [place] 17 Babesia Microti AB (Igg) <1:64 titer <1:64 Babesia Microti AB (Igm) <1:20 titer <1:20 Interpretation see note 18 Lyme AB Screen <0.90 Index <0.90 19 E. Chaffeensis AB Igg <1:64 <1:64 E. Chaffeensis AB Igm <1:20 <1:20 Interpretation see note 20 Comment see note 21 Laboratory test finding 09/27/2022 [facility] [address] [place] [address] [place] [address] [phone] Clinical PDF Report [id number] SEE IMAGE Laboratory test finding 09/26/2022 [facility] [address] [facility], [address] [place] [address] [phone] Cologuard Negative Negative 22 Lupus Anticoagulant Evaluation 09/20/[address] [place] [id number] [phone] DRVVT Screen 34 23 PTT-LA Screen 39 24 Lupus Anticoagulant see note 25 Laboratory test finding 09/20/2022 [facility] [address] [place], [place] [id number] [phone] Sed Rate 1 0-20 Jamila NEGATIVE C-Reactive Prot 0.029 mg/dL 0.000-0.700 1 [id number] Spin - separate - FREEZE 2 NORMAL PATIENT CONTR OL IS 11.5 INR REFERENCE RANGES: PROPHYLAXIS IN CARDIC DISEASE 2.0-3.0 PROSTHETIC HEART VALVE 3.0-4.5 RECURRENT EMBOLISM 3.0-4.5 PROPHLAXIS IN HIGH RISK SURGERY 2.0-2.5 TREATMENT IN PULMONARY EMBOLIS 2.0-3.0 3 UNABLE TO VERIFY ADOLFO BRONSON TUBE VOLUME OF ALIQUOTTED SAMPLE. RESULT ACCURACY DEPENDENT ON PRIMARY TUBE VOLUME. 4 [id number] PLATELET COMMENT* * UNABLE TO DETERMINE EXACT PLATELET COUNT DUE TO PLATELET CLUMPING. PLATELET COUNT APPEARS TO BE ADEQUATE. 6 PLATELET CLUMPING OB SERVED ON SLIDE 7 CHOLESTEROL Less than 200mg/dl Low risk 201-239 mg/dl Borderline risk Equal to or greater 240mg/dl High risk 8 TRIGLYCERIDES Less than 150mg/dl Normal 150-199mg/dl Borderline 200-499mg/dl High Greater than 500mg/dl Very High 9 HDL <40mg/dl Elevated Risk 41-59mg/dl Risk >=60mg/dl Least Risk 10 LDL <100mg/dl Optimal 100-129mg/dl Near Optimal 130-159mg/dl Borderline High 160-189mg/dl High >=190 Very High 11 VLDL Less than 30mg/dl Normal 12 CHOL/HDL <4.0 Optimal 4.0-5.0 Borderline >6.0 High Risk 13 NON-HDL 30mg/dl higher than LDL Target 14 Index Interpretatio n ----- < 0.90 Negative 0.90-1.09 Equivocal > [...] the period when erythema migrans is apparent. 15 Antibody Not Detecte d 16 Anaplasma phagocytop hilum is the tick-borne agent causing Human Granulocytic Ehrlichiosis (HGE). HGE is distinct and separate from Human Monocytic Ehrlichiosis (HME), caused by Ehrlichia chaffeensis. Serologic crossreactivity between A. phagocyto- philum and E. chaffeensis is minimal (5-15%). This test was developed and its analytical performance characteristics have been determined by [facility], [place], [place]. It has not been cleared or approved by the U.S. Food and Drug Administration. This assay has been validated pursuant to the CLIA regulations and is used for clinical purposes. 17 REFERENCE RANGE: <1: 256 INTERPRETIVE CRITERIA: <1:256 Antibody not detected > or = 1:256 Antibody detected Babesia duncani, also known as WA1, has been associated with symptoms similar to those caused by Babesia microti. Little, if any, cross-reactivity occurs between Babesia microti and WA1. This test was developed and its analytical performance characteristics have been determined by [facility]. It has not been cleared or approved by FDA. This assay has been validated pursuant to the CLIA regulations and is used for clinical purposes. 18 Antibody Not Detecte d Elevated antibody levels [...] analytical performance characteristics have been determined by [facility] [place], [place]. It has not been cleared or approved by the U.S. Food and Drug Administration. This assay has been validated pursuant to the CLIA regulations and is used for clinical purposes. 19 Reference ranges: Index Interpretation ----- <0.90 Negative [...] Lyme disease test report issued by a [place] laboratory: Patients undergoing a Lyme disease test should be aware that Lyme disease tests vary and may produce results that are inaccurate. This means a patient may not be able to rely on a positive or negative result. Health care providers are encouraged to discuss Lyme disease test results with the patient for whom the test was ordered. 20 Antibody Not Detecte d 21 Ehrlichia chaffeenis has been identified as the [...] analytical performance characteristics [facility] [place] [place]. It has not been cleared or approved by the U.S. Food and Drug Administration. This assay has been validated pursuant to the CLIA regulations and is used for clinical purposes. 22 NEGATIVE TEST RESULT . A negative Cologuard [...] screened with both Cologuard and colonoscopy. (Cole Henry al, N Engl J Med 2014;370(14):8018-1826) The normal value (reference range) for this assay is negative. COLOGUARD RE-SCREENING RECOMMENDATION: Periodic colorectal cancer screening is an important part of preventive healthcare for asymptomatic individuals at average risk for colorectal cancer. Following a negative Cologuard result, the [place] Cancer Society and U.S. Multi-Society Task Force screening guidelines recommend a Cologuard re-screening interval of 3 years. References: [place] Cancer Society Guideline for Colorectal Cancer Screening: https://www.cancer.org/cancer/azlxs-ikdmgw-uqvppm/mqfkndmde-mnrbggkpj-kxtjrvy/ac s- recommendations.html.; Kev DK, Suhail CR, Karri ThomasK, Colorectal Cancer Screening: Recommendations for Physicians and Patients from the U.S. Multi- Society Task Force on Colorectal Cancer Screening , Am J Gastroenterology 2017; 112:7713-1272. TEST DESCRIPTION: Composite algorithmic analysis of stool [...] screened with both Cologuard and colonoscopy. (Cole Henry al, N Engl J Med 2014;370(14):8280-1143.) Cologuard may produce a false negative or false positive result (no colorectal cancer or precancerous polyp present at colonoscopy follow up). A negative Cologuard test result does not guarantee the absence of CRC or advanced adenoma (pre-cancer). The current Cologuard screening interval is every 3 years. ([place] Cancer Society and U.S. Multi-Society Task Force). Cologuard performance data in a 10,000 patient pivotal study using colonoscopy as the reference method can be accessed at the following location: www.[employer].Searchbox/results. Additional description of the Cologuard test process, warnings and precautions can be found at www.cologuard.com. 23 Reference range: <=4 5 Unit: sec Test performed at [facility]/[address] Director: SHREYA SHAY MD,PHD 24 Reference range: <=4 0 Unit: sec 25 Reference range: SEE COMMENT A Lupus Anticoagulant is not detected. Reference Range: Not Detected For additional information, please refer to http://education.Health [employer]formatics.Searchbox/faq/XQY03q0 (This link is being provided for informational/ educational purposes only.) This interpretation is based on the following test results. Procedures Date Code Description Status 03/21/2023 16268 Electrocardiogram Complete C ompleted 03/21/2023 30408 Venipuncture Routine Complet ed 01/14/2023 G0008 Influenza Admin Completed 11/14/2022 [id number] Mammogram Completed 11/01/2022 07608 Venipuncture Routine Complet ed 09/27/2022 58366 Venipuncture Routine Complet ed 09/20/2022 01955 Venipuncture Routine Complet ed Medical Devices Description [...] TREV Trejo 01/14/2023 Z23 Encounter for immunization Taiwo Silva MD 01/14/2023 Z23 Encounter for immunization Bull Kapadia 12/01/2022 T63.461A Toxic effect of venom of wasps, accidental (unintentional), initial encounter Naomi Black TREV 11/08/2022 Z00.00 Encounter for ge neral adult medical examination without abnormal findings Bethany O. [place], DETAIL SERGEANT 11/08/2022 K21.9 Gastro-esophagea l reflux disease without esophagitis Bethany O. [place], DETAIL SERGEANT 11/08/2022 G47.10 Hypersomnia, unspecified Ang cynthia O. [place], DETAIL SERGEANT 11/08/2022 Z12.31 Encounter for sc reening mammogram for malignant neoplasm of breast Bethany O. [place], DETAIL SERGEANT 11/08/2022 R10.814 Left lower quadrant abdomina l tenderness Bethany O. [place], DETAIL SERGEANT 11/08/2022 R13.10 Dysphagia, unspecified Carlos a O. [place], DETAIL SERGEANT 11/08/2022 G43.009 Migraine without aura, not intractable, without status migrainosus Bethany O. [place], DETAIL SERGEANT 11/08/2022 F43.23 Adjustment disor maria elena with mixed anxiety and depressed mood Bethany O. [place], DETAIL SERGEANT 11/08/2022 Z68.1 Body mass index [BMI] 19.9 o r less, adult Bethany O. [place], DETAIL SERGEANT 11/01/2022 Z13.1 Encounter for sc reening for diabetes mellitus Blaise Silva MD 11/01/2022 Z13.1 Encounter for sc reening for diabetes mellitus Steffi Nurse 11/01/2022 Z13.6 Encounter for sc reening for cardiovascular disorders Blaise Silva MD 11/01/2022 Z13.6 Encounter for sc reening for cardiovascular disorders Steffi Nurse 09/27/2022 R53.83 Other fatigue Bethany O. [place], DETAIL SERGEANT 09/27/2022 G47.10 Hypersomnia, unspecified Ang cynthia O. [place], DETAIL SERGEANT 09/27/2022 R10.814 Left lower quadrant abdomina l tenderness Bethany O. [place], DETAIL SERGEANT 09/27/2022 R13.10 Dysphagia, unspecified Carlos a O. [place], DETAIL SERGEANT 09/27/2022 R63.4 Abnormal weight loss Bethany O. [place], DETAIL SERGEANT 09/20/2022 R53.83 Other fatigue Blaise Silva MD 09/20/2022 R53.83 Other fatigue [facility] Plan of Treatment Future Appointment(s):* 11/13/2023 9:00 am - TREV Trejo at [facility] * 11/06/2023 7:30 am - [facility] Nurse at [facility] 12/01/2022 - TREV Kuo* T63.461A Toxic effect [...] for Referral Status Appt [facility] Please schedu le patient for a PSG, followed by an MSLT. DX: Extreme daytime fatigue, hypersomnia, normal home sleep test with an AHI of 1.9 events per hour. Patient Declined 01/25/2023 [address] [facility] Closed [address] [place], [place] [id number] [phone]
--- OUTSIDE RECORDS SUMMARY | 2023-03-28 17:30 | External Medical Summary | Continuity of Care Document ---
Author Name Unknown Organization [facility] Address [address] [place] [address] Phone [phone] Care Team Providers Care Water Quality Specialist Name Role Phone Cardiology - Cardiovascular Disease Care Team In formation Dependency Program Director Unavailable Sean Ramirez DMD Care Team Information Receiv er [phone] Problems Active Problems Provider Date Refractory migraine [...] SIG Qnty Indications Order ing Provider Date [id number] Capsules DR take 1 capsule daily for esophageal reflux 90caps K21.9 Jake Rush MD 03/02/2023 Yzegnocpia95lr Tablets take 3 tablets for days 1-3, take 2 tablets for days 4-6, take 1 tablet for days 7-10 19tabs T63.461A Jake Rush MD 12/01/2022 [id number] Implant [facility]; 08/24/2020 Lorraine Rowley PA-C [id number] Tablets Dispers 1 at onset migraine. only 1 dose/24 hours Unknown Pantoprazole Wfzony86nt Tablets DR 1 by mouth every day K21.9 Unknown Amitriptyline JPW07le Tablets take 1 tablet by mouth everyday at bedtime Unknown Immunizations CPT Code Status Date Vaccine Lot # [id number] Given 01/14/2023 Sarscov2 Vaccin e 50 mcg/0.5 ML For Im Use 12 Yrs And Older [id number] 55858 Given 01/14/2023 Influenza Vacci ne Quadrivalent Preser/Antibiotic Free Im Use [id number] 89533 Given 02/01/2022 Moderna Sars-Co v-2 (Covid-19) Vaccine, BiValent Booster 12y+ [id number] 16875 Given 02/01/2022 Influenza Virus Vaccine, Quadrivalent (Cciiv4), Derived From Cell [id number] 64466 Given 02/01/2022 Tdap (Tetanus, diphtheria & acel. pertussis) Adacel or Boostrix [id number] 57246 Given 02/08/2021 Moderna Covid-1 9 Vaccine 50mcg Booster-EMR Doc Only [id number] 97498 Given 02/08/2021 Influenza Virus Vaccine, Quadrivalent (Cciiv4), Derived From 1 Given 06/01/2020 Pfizer Sars-Cov -2 (Cov-19) vacc 30mcg/0.3ML 12Y+ EMR Doc Only 21425 Given 05/11/2020 Pfizer Sars-Cov -2 (Cov-19) vacc 30mcg/0.3ML 12Y+ EMR Doc Only 89360 Given 11/28/2013 Tdap (Tetanus, diphtheria & acel. pertussis) Adacel or Boostrix [id number] Refused 03/12/2014 Influenza Virus Vaccine, Quadrivalent, Im Use Vital Signs Date Vital Result Comment 12/01/2022 3:08pm BP Systolic 106 mmHg BP Diastolic 80 mmHg Body Temperature 98.1 F Heart Rate 72 /min Respiratory Rate 14 /min Weight 128.00 lb Weight 58.061 kg Height 69.5 inches 5'9.50" BMI (Body Mass Index) 18.6 kg/m2 O2 % BldC Oximetry 98 % Cantil Body Weight 145 lb 11/08/2022 8:08am BP Systolic 120 mmHg BP Diastolic 80 mmHg Heart Rate 64 /min Weight 127.50 lb Weight 57.834 kg Height 69.5 inches 5'9.50" BMI (Body Mass Index) 18.6 kg/m2 O2 % BldC Oximetry 99 % ra Cantil Body Weight 145 lb Results Test Acquired Date Facility Test Result H/L Range N ote PT Inr ROCK CRUSHER OPERATOR 03/21/2023 [facility]. [address] [place] [address] [phone] PT 10.9 SEC 10.0-12.4 1, 2 Inr 0.9 RATIO Laboratory test finding 03/21/2023 [facility]. [address] [place] [address] [phone] PTT 35.7 SEC 27.0-38.1 3 CBC W/Diff 03/21/2023 [facility]. [address] [place] [address] [phone] WBC 6.0 10^3/M3 3.1-9.2 4 RBC 4.87 10^6/M3 3.70-5.50 HGB 14.2 GR/DL 11.5-16.1 HCT 42.9 % 34.5-47.8 MCV 88.2 CUMICR 82.6-95.8 MCH 29.1 PICOGR 27.9-32.9 MCHC 33.0 % 32.6-35.4 RDW 13.4 % 11.4-14.6 PLT COMMENT 10^3/M3 140-350 5 MPV 9.0 CUMICR 7.0-10.6 %Neut 57.3 % 40.0-75.0 %Lymph 31.8 % 17.0-45.0 %[place]utsman 8.2 % 1.0-11.0 %Eos 1.8 % 0.0-6.0 %Baso 0.9 % 0.0-2.0 #Neut 3.4 10^3/M3 1.5-8.0 #Lymph 1.9 10^3/M3 0.8-3.2 #Stutsman 0.5 10^3/M3 0.0-0.8 #Eos 0.1 10^3/m3 0.0-0.4 #Baso 0.1 10^3/m3 0.0-0.2 Platelet Est PLATELET CLUMPIN <SEE NOTE> 6 BMP 11/01/2022 [facility]. [address] [place], [place] [address]87 [phone] Glucose 93 mg/dL 70-110 BUN 20 mg/dL 6-25 Creatinine 1.1 mg/dL 0.5-1.2 Sodium 140 mEq/L 135-145 Potassium 3.5 mEq/L 3.5-5.0 Chloride 106 mEq/L 95-107 Co-2 23 mEq/L Low 24-31 Calcium 9.9 mg/dL 8.5-10.6 GFR 57 ML/MIN/1.73SQM Low >60 Lipid 11/01/2022 [facility]. [address] [place], [place] [address] [phone] Cholesterol 153 mg/dL 0-200 7 Triglyceride 88 mg/dL 0-150 8 HDLD 66 mg/dL See Comment 9 Measured LDL 63 mg/dL 0-130 10 Calc VLDL 17.6 mg/dL See Comment 11 Chol/HDL 2.3 RATIO See Comment 12 Non-HDL 87 mg/dL See Comment 13 Lyme Disease AB W/RFX To Blot (Igg,Igm) 09/27/[address] [facility] [place] [address] [phone] Lyme AB Screen <0.90 index Normal 14 Tick-Borne Disease, Antibody Panel 09/27/[address] [facility] [place] [address] [phone] A. Phagocytophilum AB (Igg) <1:64 <1: 64 [...] see note 21 Laboratory test finding 09/27/2022 [facility] [address] [place] [address] [place] [address] [phone] Clinical PDF Report [id number] SEE IMAGE Laboratory test finding 09/26/2022 [facility] [address] [facility], [address] [place] [address] [phone] Cologuard Negative Negative 22 Lupus Anticoagulant Evaluation 09/20/[address] [place] [address] [phone] DRVVT Screen 34 23 PTT-LA Screen 39 24 Lupus Anticoagulant see note 25 Laboratory test finding 09/20/2022 [facility]. [address] [place], [place] [address] [phone] Sed Rate 1 0-20 Jamila NEGATIVE C-Reactive [...] analytical performance characteristics have been determined by [facility], [place], [place]. It has not been cleared or [...] analytical performance characteristics have been determined by [facility]. It has not been cleared or approved [...] analytical performance characteristics have been determined by [facility] [place], [place]. It has not been cleared or [...] Lyme disease test report issued by a [place] laboratory: Patients undergoing a Lyme disease test [...] analytical performance characteristics have been determined by [facility], [place], [place]. It has not been cleared or [...] (Cole Henry al, N Engl J Med 2014;370(14):5643-0699) The normal value (reference range) for this assay is negative. COLOGUARD RE-SCREENING RECOMMENDATION: Periodic colorectal cancer screening is an important part of preventive healthcare for asymptomatic individuals at average risk for colorectal cancer. Following a negative Cologuard result, the [place] Cancer Society and U.S. Multi-Society Task Force screening guidelines recommend a Cologuard re-screening interval of 3 years. References: [place] [employer] Guideline for Colorectal Cancer Screening: https://www.cancer.org/cancer/ehmau-xdnkex-gbkixm/addjgvcdn-cijzlgfrg-ftduygc/ac s- recommendations.html.; Kev DK, Suhail CR, Karir ThomasK, Colorectal Cancer Screening: Recommendations for Physicians and Patients from the U.S. Multi- Society Task Force on Colorectal Cancer Screening , Am J Gastroenterology 2017; 112:7756-1850. TEST DESCRIPTION: Composite algorithmic analysis of stool [...] (Cole Henry al, N Engl J Med 2014;370(14):9396-2126.) Cologuard may produce a false negative or false positive result (no colorectal cancer or precancerous polyp present at colonoscopy follow up). A negative Cologuard test result does not guarantee the absence of CRC or advanced adenoma (pre-cancer). The current Cologuard screening interval is every 3 years. ([place] Cancer Society and U.S. Multi-Society Task Force). Cologuard performance data in a 10,000 patient pivotal study using colonoscopy as the reference method can be accessed at the following location: [email or web address].[email or web address]/results. Additional description of the Cologuard test process, warnings and precautions can be found at www.cologuard.com. 23 Reference range: <=4 5 Unit: sec Test performed at [facility] Director: SHREYA SHAY MD,PHD 24 Reference range: <=4 0 Unit: sec 25 Reference range: SEE COMMENT A Lupus Anticoagulant is not detected. Reference Range: Not Detected For additional information, please refer to http://education.[employer].MWI/faq/CKK04l8 (This link is being provided for informational/ educational purposes only.) This interpretation is based on the following test results. Procedures Date Code Description Status 03/21/2023 39205 Electrocardiogram Complete C ompleted 03/21/2023 35615 Venipuncture Routine Complet ed 01/14/2023 G0008 Influenza Admin Completed 11/14/2022 86407312 Mammogram Completed 11/01/2022 72165 Venipuncture Routine Complet ed 09/27/2022 62459 Venipuncture Routine Complet ed 09/20/2022 80723 Venipuncture Routine Complet ed Medical Devices Description [...] medical examination without abnormal findings Bethany O. Marydel, MOLDER MACHINE TENDER 11/08/2022 K21.9 Gastro-esophagea l reflux disease without esophagitis Bethany O. Marydel, MOLDER MACHINE TENDER 11/08/2022 G47.10 Hypersomnia, unspecified Ang cynthia O. Marydel, MOLDER MACHINE TENDER 11/08/2022 Z12.31 Encounter for sc reening mammogram for malignant neoplasm of breast Bethany O. Marydel, MOLDER MACHINE TENDER 11/08/2022 R10.814 Left lower quadrant abdomina l tenderness Bethany O. Marydel, MOLDER MACHINE TENDER 11/08/2022 R13.10 Dysphagia, unspecified Carlos a O. Marydel, MOLDER MACHINE TENDER 11/08/2022 G43.009 Migraine without aura, not intractable, without status migrainosus Bethany O. Marydel, MOLDER MACHINE TENDER 11/08/2022 F43.23 Adjustment disor maria elena with mixed anxiety and depressed mood Bethany O. Marydel, MOLDER MACHINE TENDER 11/08/2022 Z68.1 Body mass index [BMI] 19.9 o r less, adult Bethany O. Marydel, MOLDER MACHINE TENDER 11/01/2022 Z13.1 Encounter for sc reening for diabetes mellitus Blaise Silva MD 11/01/2022 Z13.1 Encounter for sc reening for diabetes mellitus Ste[facility]i Nurse 11/01/2022 Z13.6 Encounter for sc reening for cardiovascular disorders Blaise Silva MD 11/01/2022 Z13.6 Encounter for sc reening for cardiovascular disorders Steffi Nurse 09/27/2022 R53.83 Other fatigue Bethany O. With ee, MOLDER MACHINE TENDER 09/27/2022 G47.10 Hypersomnia, unspecified Ang cynthia O. Marydel, MOLDER MACHINE TENDER 09/27/2022 R10.814 Left lower quadrant abdomina l tenderness Bethany O. Marydel, MOLDER MACHINE TENDER 09/27/2022 R13.10 Dysphagia, unspecified Carlos a O. Marydel, MOLDER MACHINE TENDER 09/27/2022 R63.4 Abnormal weight loss Bethany O. Marydel, MOLDER MACHINE TENDER 09/20/2022 R53.83 Other fatigue Blaise Silva MD 09/20/2022 R53.83 Other fatigue [facility] Plan of Treatment Future Appointment(s):* 11/13/2023 9:00 am - [facility] Tre[facility] at [facility] * 11/06/2023 7:30 am - [facility] 12/01/2022 - TREV Kuo* T63.461A Toxic effect [...] for Referral Status Appt Christopher e Sleep Pcgr-Gjxwbd-JX.Burke Please schedu le patient for a PSG, followed by an MSLT. DX: Extreme daytime fatigue, hypersomnia, normal home sleep test with an AHI of 1.9 events per hour. Patient Declined 01/25/2023 [address] [facility] Closed [address] [place], [place] [address] [phone]
--- OUTSIDE RECORDS SUMMARY | 2023-03-28 17:30 | External Medical Summary | Continuity of Care Document ---
Author Name Unknown Organization [facility] Address [address] [place] [address] Phone [phone] Care Team Providers Care Design Studio Consultant Name Role Phone Cardiology - Cardiovascular Disease Care Team In formation Top Dyeing Machine Loader Unavailable Sean Ramirez DMD Care Team Information Receiv er [phone] Problems Active Problems Provider Date Refractory migraine [...] SIG Qnty Indications Order ing Provider Date Zxpkyebvwi76hz Capsules DR take 1 capsule daily for esophageal reflux 90caps K21.9 Jake Rush MD 03/02/2023 Aezjbrmouy18jd Tablets take 3 tablets for days 1-3, take 2 tablets for days 4-6, take 1 tablet for days 7-10 19tabs T63.461A Jake Rush MD 12/01/2022 Qlgxqodnb99wq [facility]; 08/24/2020 Lorraine Rowley PA-C Pmxdnc08tr Tablets Dispers 1 at onset migraine. only 1 dose/24 hours Unknown Pantoprazole Uswrvk87ln Tablets DR 1 by mouth every day K21.9 Unknown Amitriptyline HPG97in Tablets take 1 tablet by mouth everyday at bedtime Unknown Immunizations CPT Code Status Date Vaccine Lot # [id number] Given 01/14/2023 Sarscov2 Vaccin e 50 mcg/0.5 ML For Im Use 12 Yrs And Older [id number] 17955 Given 01/14/2023 Influenza Vacci ne Quadrivalent Preser/Antibiotic Free Im Use [id number] 32221 Given 02/01/2022 Moderna Sars-Co v-2 (Covid-19) Vaccine, BiValent Booster 12y+ [id number] 42181 Given 02/01/2022 Influenza Virus Vaccine, Quadrivalent (Cciiv4), Derived From Cell [id number] 99837 Given 02/01/2022 Tdap (Tetanus, diphtheria & acel. pertussis) Adacel or Boostrix [id number] 56652 Given 02/08/2021 Moderna Covid-1 9 Vaccine 50mcg Booster-EMR Doc Only [id number] 94601 Given 02/08/2021 Influenza Virus Vaccine, Quadrivalent (Cciiv4), Derived From 6 Given 06/01/2020 Pfizer Sars-Cov -2 (Cov-19) vacc 30mcg/0.3ML 12Y+ EMR Doc Only 03856 Given 05/11/2020 Pfizer Sars-Cov -2 (Cov-19) vacc 30mcg/0.3ML 12Y+ EMR Doc Only 56696 Given 11/28/2013 Tdap (Tetanus, diphtheria & acel. pertussis) Adacel or Boostrix [id number] Refused 03/12/2014 Influenza Virus Vaccine, Quadrivalent, Im Use Vital Signs Date Vital Result Comment 12/01/2022 3:08pm BP Systolic 106 mmHg BP Diastolic 80 mmHg Body Temperature 98.1 F Heart Rate 72 /min Respiratory Rate 14 /min Weight 128.00 lb Weight 58.061 kg Height 69.5 inches 5'9.50" BMI (Body Mass Index) 18.6 kg/m2 O2 % BldC Oximetry 98 % [place] Body Weight 145 lb 11/08/2022 8:08am BP Systolic 120 mmHg BP Diastolic 80 mmHg Heart Rate 64 /min Weight 127.50 lb Weight 57.834 kg Height 69.5 inches 5'9.50" BMI (Body Mass Index) 18.6 kg/m2 O2 % BldC Oximetry 99 % ra [place] Body Weight 145 lb Results Test Acquired Date Facility Test Result H/L Range N ote PT Inr COMBINER OPERATOR 03/21/2023 [facility]. [address] [place] [address] [phone] PT 10.9 SEC 10.0-12.4 1, 2 Inr 0.9 RATIO Laboratory test finding 03/21/2023 [facility]. [address] [place] [address] [phone] PTT 35.7 SEC 27.0-38.1 3 CBC W/Diff 03/21/2023 [facility]. [address] [place] [address] [phone] WBC 6.0 10^3/M3 3.1-9.2 4 RBC 4.87 10^6/M3 3.70-5.50 HGB 14.2 GR/DL 11.5-16.1 HCT 42.9 % 34.5-47.8 MCV 88.2 CUMICR 82.6-95.8 MCH 29.1 PICOGR 27.9-32.9 MCHC 33.0 % 32.6-35.4 RDW 13.4 % 11.4-14.6 PLT COMMENT 10^3/M3 140-350 5 MPV 9.0 CUMICR 7.0-10.6 %Neut 57.3 % 40.0-75.0 %Lymph 31.8 % 17.0-45.0 %[place] 8.2 % 1.0-11.0 %Eos 1.8 % 0.0-6.0 %Baso 0.9 % 0.0-2.0 #Neut 3.4 10^3/M3 1.5-8.0 #Lymph 1.9 10^3/M3 0.8-3.2 #[place] 0.5 10^3/M3 0.0-0.8 #Eos 0.1 10^3/m3 0.0-0.4 #Baso 0.1 10^3/m3 0.0-0.2 Platelet Est PLATELET CLUMPIN <SEE NOTE> 6 BMP 11/01/2022 [facility]. [address] [place], [place] [address] [phone] Glucose 93 mg/dL 70-110 BUN 20 mg/dL 6-25 Creatinine 1.1 mg/dL 0.5-1.2 Sodium 140 mEq/L 135-145 Potassium 3.5 mEq/L 3.5-5.0 Chloride 106 mEq/L 95-107 Co-2 23 mEq/L Low 24-31 Calcium 9.9 mg/dL 8.5-10.6 GFR 57 ML/MIN/1.73SQM Low >60 Lipid 11/01/2022 [facility]. [address] [place], [place] [address] [phone] Cholesterol 153 mg/dL 0-200 7 Triglyceride 88 mg/dL 0-150 8 HDLD 66 mg/dL See Comment 9 Measured LDL 63 mg/dL 0-130 10 Calc VLDL 17.6 mg/dL See Comment 11 Chol/HDL 2.3 RATIO See Comment 12 Non-HDL 87 mg/dL See Comment 13 Lyme Disease AB W/RFX To Blot (Igg,Igm) 09/27/2022 [facility] [place] [address] [phone] Lyme AB Screen <0.90 index Normal 14 Tick-Borne Disease, Antibody Panel 09/27/2022 [facility] [place] [address] [phone] A. Phagocytophilum AB (Igg) <1:64 <1: 64 [...] see note 21 Laboratory test finding 09/27/2022 [facility] [address] [place] [address] [place] [address] [phone] Clinical PDF Report [id number] SEE IMAGE Laboratory test finding 09/26/2022 [facility] [address] [facility], [address] [place] [address] [phone] Cologuard Negative Negative 22 Lupus Anticoagulant Evaluation 09/20/[address] [place] [address] [phone] DRVVT Screen 34 23 PTT-LA Screen 39 24 Lupus Anticoagulant see note 25 Laboratory test finding 09/20/2022 [facility] Lab. [address] [place], [place] [address] [phone] Sed Rate 1 0-20 Jamila NEGATIVE C-Reactive [...] analytical performance characteristics have been determined by [facility], [place], [place]. It has not been cleared or [...] analytical performance characteristics have been determined by [facility]. It has not been cleared or approved [...] analytical performance characteristics have been determined by [facility] [place], [place]. It has not been cleared or [...] Lyme disease test report issued by a [place] laboratory: Patients undergoing a Lyme disease test [...] analytical performance characteristics have been determined by [facility], [place], [place]. It has not been cleared or [...] (Cole Henry al, N Engl J Med 2014;370(14):7695-1818) The normal value (reference range) for this assay is negative. COLOGUARD RE-SCREENING RECOMMENDATION: Periodic colorectal cancer screening is an important part of preventive healthcare for asymptomatic individuals at average risk for colorectal cancer. Following a negative Cologuard result, the [place] Cancer Society and U.S. Multi-Society Task Force screening guidelines recommend a Cologuard re-screening interval of 3 years. References: [place] Cancer [employer] Guideline for Colorectal Cancer Screening: https://www.cancer.org/cancer/oajrq-xbdpku-aoppue/cnocctypt-rubtxanmm-fxilsql/ac s- recommendations.html.; Kev DK, Suhail CR, Karri ThomasK, Colorectal Cancer Screening: Recommendations for Physicians and Patients from the U.S. Multi- Society Task Force on Colorectal Cancer Screening , Am J Gastroenterology 2017; 112:5870-8638. TEST DESCRIPTION: Composite algorithmic analysis of stool [...] (Cole Henry al, N Engl J Med 2014;370(14):9864-8829.) Cologuard may produce a false negative or false positive result (no colorectal cancer or precancerous polyp present at colonoscopy follow up). A negative Cologuard test result does not guarantee the absence of CRC or advanced adenoma (pre-cancer). The current Cologuard screening interval is every 3 years. ([place] Cancer Society and U.S. Multi-Society Task Force). Cologuard performance data in a 10,000 patient pivotal study using colonoscopy as the reference method can be accessed at the following location: www.[employer] Ideas/results. Additional description of the Cologuard test process, warnings and precautions can be found at www.cologuard.com. 23 Reference range: <=4 5 Unit: sec Test performed at [facility] Director: SHREYA SHAY MD,PHD 24 Reference range: <=4 0 Unit: sec 25 Reference range: SEE COMMENT A Lupus Anticoagulant is not detected. Reference Range: Not Detected For additional information, please refer to http://education.[employer].Saw[employer] Ideas/faq/ZJZ90g7 (This link is being provided for informational/ educational purposes only.) This interpretation is based on the following test results. Procedures Date Code Description Status 03/21/2023 27199 Electrocardiogram Complete C ompleted 03/21/2023 28647 Venipuncture Routine Complet ed 01/14/2023 G0008 Influenza Admin Completed 11/14/2022 [id number] Mammogram Completed 11/01/2022 24306 Venipuncture Routine Complet ed 09/27/2022 25663 Venipuncture Routine Complet ed 09/20/2022 37592 Venipuncture Routine Complet ed Medical Devices Description [...] sc reening for cardiovascular disorders TREV Trejo 03/21/2023 Z01.810 Encounter for pr eprocedural cardiovascular examination TREV Trejo 01/14/2023 Z23 Encounter for immunization Taiwo Silva MD 01/14/2023 Z23 Encounter for immunization Bull Kapadia 12/01/2022 T63.461A Toxic effect of venom of wasps, accidental (unintentional), initial encounter Naomi Black, TREV 11/08/2022 Z00.00 Encounter for ge neral adult medical examination without abnormal findings Bethany O. Odd, SCRAP PICKER 11/08/2022 K21.9 Gastro-esophagea l reflux disease without esophagitis Bethany O. Odd, SCRAP PICKER 11/08/2022 G47.10 Hypersomnia, unspecified Ang cynthia O. Odd, SCRAP PICKER 11/08/2022 Z12.31 Encounter for sc reening mammogram for malignant neoplasm of breast Bethany O. Odd, SCRAP PICKER 11/08/2022 R10.814 Left lower quadrant abdomina l tenderness Bethany O. Odd, SCRAP PICKER 11/08/2022 R13.10 Dysphagia, unspecified Carlos a O. Odd, SCRAP PICKER 11/08/2022 G43.009 Migraine without aura, not intractable, without status migrainosus Bethany O. Odd, SCRAP PICKER 11/08/2022 F43.23 Adjustment disor maria elena with mixed anxiety and depressed mood Bethany O. Odd, SCRAP PICKER 11/08/2022 Z68.1 Body mass index [BMI] 19.9 o r less, adult Bethany O. Odd, SCRAP PICKER 11/01/2022 Z13.1 Encounter for sc reening for diabetes mellitus Blaise Silva MD 11/01/2022 Z13.1 Encounter for sc reening for diabetes mellitus [facility] Nurse 11/01/2022 Z13.6 Encounter for sc reening for cardiovascular disorders Blaise Silva MD 11/01/2022 Z13.6 Encounter for sc reening for cardiovascular disorders [facility] Nurse 09/27/2022 R53.83 Other fatigue Bethany O. With ee, SCRAP PICKER 09/27/2022 G47.10 Hypersomnia, unspecified Ang cynthia O. Odd, SCRAP PICKER 09/27/2022 R10.814 Left lower quadrant abdomina l tenderness Bethany O. Odd, SCRAP PICKER 09/27/2022 R13.10 Dysphagia, unspecified Carlos a O. Odd, SCRAP PICKER 09/27/2022 R63.4 Abnormal weight loss Bethany O. Odd, SCRAP PICKER 09/20/2022 R53.83 Other fatigue Blaise Silva MD 09/20/2022 R53.83 Other fatigue [facility] Plan of Treatment Future Appointment(s):* 11/13/2023 9:00 am - [facility]V Trejo at [facility] * 11/06/2023 7:30 am - [facility] 12/01/2022 - TREV Kuo* T63.461A Toxic effect [...] Description No Information Available Referrals Refer to Reason for Referral Status Appt Christopher e Sleep Ffbj-Vtjrqn-WS.Burke Please schedu le patient for a PSG, followed by an MSLT. DX: Extreme daytime fatigue, hypersomnia, normal home sleep test with an AHI of 1.9 events per hour. Patient Declined 01/25/2023 [address] [facility] Closed [address] [place] [address] [phone]
--- OUTSIDE RECORDS SUMMARY | 2023-03-28 17:30 | External Medical Summary | Continuity of Care Document ---
Author Name Unknown Organization [place] Address [address] [place] [address] Phone [phone] Care Team Providers Care Telegraph Office Telephone Clerk Name Role Phone Cardiology - Cardiovascular Disease Care Team In formation Psychological Stress Evaluator Unavailable Sean Ramirez DMD Care Team Information Receiv er [phone] Problems Active Problems Provider Date Refractory migraine [...] SIG Qnty Indications Order ing Provider Date Rmcklyhpgl90ts Capsules DR take 1 capsule daily for esophageal reflux 90caps K21.9 Jake Rush MD 03/02/2023 Fpkbfnjrmi48zz Tablets take 3 tablets for days 1-3, take 2 tablets for days 4-6, take 1 tablet for days 7-10 19tabs T63.461A Jake Rush MD 12/01/2022 Qjiebvumo40wc Implant [facility]; 08/24/2020 Lorraine Rowley PA-C Qpwxsq77wh Tablets Dispers 1 at onset migraine. only 1 dose/24 hours Unknown Pantoprazole Ygthvo41yg Tablets DR 1 by mouth every day K21.9 Unknown Amitriptyline EFJ08xs Tablets take 1 tablet by mouth everyday at bedtime Unknown Immunizations CPT Code Status Date Vaccine Lot # [id number] Given 01/14/2023 Sarscov2 Vaccin e 50 mcg/0.5 ML For Im Use 12 Yrs And Older [id number] 54475 Given 01/14/2023 Influenza Vacci ne Quadrivalent Preser/Antibiotic Free Im Use [id number] 38065 Given 02/01/2022 Moderna Sars-Co v-2 (Covid-19) Vaccine, BiValent Booster 12y+ [id number] 27085 Given 02/01/2022 Influenza Virus Vaccine, Quadrivalent (Cciiv4), Derived From Cell [id number] 61593 Given 02/01/2022 Tdap (Tetanus, diphtheria & acel. pertussis) Adacel or Boostrix [id number] 03001 Given 02/08/2021 Moderna Covid-1 9 Vaccine 50mcg Booster-EMR Doc Only [id number] 88878 Given 02/08/2021 Influenza Virus Vaccine, Quadrivalent (Cciiv4), Derived From 6 Given 06/01/2020 Pfizer Sars-Cov -2 (Cov-19) vacc 30mcg/0.3ML 12Y+ EMR Doc Only 45625 Given 05/11/2020 Pfizer Sars-Cov -2 (Cov-19) vacc 30mcg/0.3ML 12Y+ EMR Doc Only 96578 Given 11/28/2013 Tdap (Tetanus, diphtheria & acel. pertussis) Adacel or Boostrix [id number] 36161 Refused 03/12/2014 Influenza Virus Vaccine, Quadrivalent, Im Use Vital Signs Date Vital Result Comment 12/01/2022 3:08pm BP Systolic 106 mmHg BP Diastolic 80 mmHg Body Temperature 98.1 F Heart Rate 72 /min Respiratory Rate 14 /min Weight 128.00 lb Weight 58.061 kg Height 69.5 inches 5'9.50" BMI (Body Mass Index) 18.6 kg/m2 O2 % BldC Oximetry 98 % [place] Body Weight 145 lb 11/08/2022 8:08am BP Systolic 120 mmHg BP Diastolic 80 mmHg Heart Rate 64 /min Weight 127.50 lb Weight 57.834 kg Height 69.5 inches 5'9.50" BMI (Body Mass Index) 18.6 kg/m2 O2 % BldC Oximetry 99 % ra [place] Body Weight 145 lb Results Test Acquired Date Facility Test Result H/L Range N ote Laboratory test finding 03/21/2023 [facility]. [address] [place] [address] [phone] PTT <pending> BMP 11/01/2022 [facility] [address] [place], [place] [id number] [phone] Glucose 93 mg/dL 70-110 BUN 20 mg/dL 6-25 Creatinine 1.1 mg/dL 0.5-1.2 Sodium 140 mEq/L 135-145 Potassium 3.5 mEq/L 3.5-5.0 Chloride 106 mEq/L 95-107 Co-2 23 mEq/L Low 24-31 Calcium 9.9 mg/dL 8.5-10.6 GFR 57 ML/MIN/1.73SQM Low >60 Lipid 11/01/2022 [facility] [address] [place] [address] [phone] Cholesterol 153 mg/dL 0-200 1 Triglyceride 88 mg/dL 0-150 2 HDLD 66 mg/dL See Comment 3 Measured LDL 63 mg/dL 0-130 4 Calc VLDL 17.6 mg/dL See Comment 5 Chol/HDL 2.3 RATIO See Comment 6 Non-HDL 87 mg/dL See Comment 7 Lyme Disease AB W/RFX To Blot (Igg,Igm) 09/27/[address] [place] [address] [phone] Lyme AB Screen <0.90 index Normal 8 Tick-Borne Disease, Antibody Panel 09/27/[address] [place] [address] [phone] A. Phagocytophilum AB (Igg) <1:64 <1: 64 [...] see note 15 Laboratory test finding 09/27/[address] [place] [address] [phone] Clinical PDF Report [id number] SEE IMAGE Laboratory test finding 09/26/2022 [employer] [address] [facility], [address] [place] [address] [phone] Cologuard Negative Negative 16 Lupus Anticoagulant Evaluation 09/20/[address] [id number] [phone] DRVVT Screen 34 17 PTT-LA Screen 39 18 Lupus Anticoagulant see note 19 Laboratory test finding 09/20/2022 [facility]. [address] [place] [address] [phone] Sed Rate 1 0-20 Jamila NEGATIVE C-Reactive [...] analytical performance characteristics have been determined by [facility], [place], [place]. It has not been cleared or [...] analytical performance characteristics have been determined by [facility]. It has not been cleared or approved [...] analytical performance characteristics have been determined by [place] It has not been cleared or [...] analytical performance characteristics have been determined by [place]. It has not been cleared or [...] Evans. et al, N Engl J Med 2014;370(14):7512-7078) The normal value (reference range) for this assay is negative. COLOGUARD RE-SCREENING RECOMMENDATION: Periodic colorectal cancer screening is an important part of preventive healthcare for asymptomatic individuals at average risk for colorectal cancer. Following a negative Cologuard result, the [place] Cancer Society and U.S. Multi-Society Task Force screening guidelines recommend a Cologuard re-screening interval of 3 years. References: [place] Cancer Society Guideline for Colorectal Cancer Screening: https://www.cancer.org/cancer/epzic-nbobsj-lgmidh/qobpqwaoe-exnsflgkr-bbufigy/ac s- recommendations.html.; Kev MALDONADO, Suhail PICKETT, Karri ThomasK, Colorectal Cancer Screening: Recommendations for Physicians and Patients from the U.S. Multi- Society Task Force on Colorectal Cancer Screening , Am J Gastroenterology 2017; 112:4337-6145. TEST DESCRIPTION: Composite algorithmic analysis of stool [...] Mallory et al, N Engl J Med 2014;370(14):9544-7250.) Cologuard may produce a false negative or false positive result (no colorectal cancer or precancerous polyp present at colonoscopy follow up). A negative Cologuard test result does not guarantee the absence of CRC or advanced adenoma (pre-cancer). The current Cologuard screening interval is every 3 years. ([place] Cancer Society and U.S. Multi-Society Task Force). Cologuard performance data in a 10,000 patient pivotal study using colonoscopy as the reference method can be accessed at the following location: www.Peel/results. Additional description of the Cologuard test process, warnings and precautions can be found at [email or web address]. 17 Reference range: <=4 5 Unit: sec Test performed at [facility]/[address] Director: SHREYA SHAY MD,PHD 18 Reference range: <=4 0 Unit: sec 19 Reference range: SEE COMMENT A Lupus Anticoagulant is not detected. Reference Range: Not Detected For additional information, please refer to http://education.Wag Moblie.Opax/faq/PBW42i0 (This link is being provided for informational/ educational purposes only.) This interpretation is based on the following test results. Procedures Date Code Description Status 03/21/2023 15044 Electrocardiogram Complete C ompleted 03/21/2023 40223 Venipuncture Routine Complet ed 01/14/2023 G0008 Influenza Admin Completed 11/14/2022 05107607 Mammogram Completed 11/01/2022 63449 Venipuncture Routine Complet ed 09/27/2022 54427 Venipuncture Routine Complet ed 09/20/2022 55966 Venipuncture Routine Complet ed Medical Devices Description [...] Z23 Encounter for immunization L ab - Stfefi 12/01/2022 T63.461A Toxic effect of venom of wasps, accidental (unintentional), initial encounter TREV Kuo 11/08/2022 Z00.00 Encounter for ge neral adult medical examination without abnormal findings TREV Trejo 11/08/2022 K21.9 Gastro-esophagea l reflux disease without esophagitis Bethany O. [place], EMBOSSED OR IMPRESSED LETTERING PAINTER 11/08/2022 G47.10 Hypersomnia, unspecified Ang cynthia O. [place], EMBOSSED OR IMPRESSED LETTERING PAINTER 11/08/2022 Z12.31 Encounter for sc reening mammogram for malignant neoplasm of breast Bethany O. [place], EMBOSSED OR IMPRESSED LETTERING PAINTER 11/08/2022 R10.814 Left lower quadrant abdomina l tenderness Bethany O. [place], EMBOSSED OR IMPRESSED LETTERING PAINTER 11/08/2022 R13.10 Dysphagia, unspecified Carlos a O. [place], EMBOSSED OR IMPRESSED LETTERING PAINTER 11/08/2022 G43.009 Migraine without aura, not intractable, without status migrainosus Bethany O. [place], EMBOSSED OR IMPRESSED LETTERING PAINTER 11/08/2022 F43.23 Adjustment disor maria elena with mixed anxiety and depressed mood Bethany O. [place], EMBOSSED OR IMPRESSED LETTERING PAINTER 11/08/2022 Z68.1 Body mass index [BMI] 19.9 o r less, adult Bethany O. [place], EMBOSSED OR IMPRESSED LETTERING PAINTER 11/01/2022 Z13.1 Encounter for sc reening for diabetes mellitus Blaise Silva MD 11/01/2022 Z13.1 Encounter for sc reening for diabetes mellitus [place] Nurse 11/01/2022 Z13.6 Encounter for sc reening for cardiovascular disorders Blaise Silva MD 11/01/2022 Z13.6 Encounter for sc reening for cardiovascular disorders [facility] Nurse 09/27/2022 R53.83 Other fatigue Bethany O. [place] e[place], EMBOSSED OR IMPRESSED LETTERING PAINTER 09/27/2022 G47.10 Hypersomnia, unspecified Ang cynthia O. [place], EMBOSSED OR IMPRESSED LETTERING PAINTER 09/27/2022 R10.814 Left lower quadrant abdomina l tenderness Bethany O. [place], EMBOSSED OR IMPRESSED LETTERING PAINTER 09/27/2022 R13.10 Dysphagia, unspecified Carlos a O. [place], EMBOSSED OR IMPRESSED LETTERING PAINTER 09/27/2022 R63.4 Abnormal weight loss Bethany O. [place], EMBOSSED OR IMPRESSED LETTERING PAINTER 09/20/2022 R53.83 Other fatigue Blaise Silva MD 09/20/2022 R53.83 Other fatigue Steffi [place] rse Plan of Treatment Future Appointment(s):* 11/13/2023 9:00 am - TREV Trejo at [place] * 11/06/2023 7:30 am - [place] [facility] [place] 12/01/2022 - TREV Kuo* T63.461A Toxic effect [...] for Referral Status Appt Christopher e Sleep Ztny-Thisct-KX.Burke Please schedu le patient for a PSG, followed by an MSLT. DX: Extreme daytime fatigue, hypersomnia, normal home sleep test with an AHI of 1.9 events per hour. Patient Declined 01/25/2023 1100 [facility] Closed [address] [place] [address] [phone]
--- OUTSIDE RECORDS SUMMARY | 2023-03-28 17:30 | External Medical Summary | Continuity of Care Document ---
Author Name Unknown Organization [place] Address [address] [place] [address] Phone [phone] Care Team Providers Care Fitting Room Checker Name Role Phone Cardiology - Cardiovascular Disease Care Team In formation Student Financial Services Counselor Unavailable Sean Ramirez DMD Care Team Information Receiv er [phone] Problems Active Problems Provider Date Refractory migraine [...] SIG Qnty Indications Order ing Provider Date Ikdaztgpyn39hm Capsules DR take 1 capsule daily for esophageal reflux 90caps K21.9 Jake Rush MD 03/02/2023 Xstbhtgtzt40ex Tablets take 3 tablets for days 1-3, take 2 tablets for days 4-6, take 1 tablet for days 7-10 19tabs T63.461A Jake Rush MD 12/01/2022 Nypmyhpdm72hn Implant [facility]; 08/24/2020 Lorraine Rowley PA-C Lgiizh80vq Tablets Dispers 1 at onset migraine. only 1 dose/24 hours Unknown Pantoprazole Lkucua47lh Tablets DR 1 by mouth every day K21.9 Unknown Amitriptyline CGX91sv Tablets take 1 tablet by mouth everyday at bedtime Unknown Immunizations CPT Code Status Date Vaccine Lot # [id number] Given 01/14/2023 Sarscov2 Vaccin e 50 mcg/0.5 ML For Im Use 12 Yrs And Older [id number] 66630 Given 01/14/2023 Influenza Vacci ne Quadrivalent Preser/Antibiotic Free Im Use [id number] 24821 Given 02/01/2022 Moderna Sars-Co v-2 (Covid-19) Vaccine, BiValent Booster 12y+ [id number] 41194 Given 02/01/2022 Influenza Virus Vaccine, Quadrivalent (Cciiv4), Derived From Cell [id number] 70508 Given 02/01/2022 Tdap (Tetanus, diphtheria & acel. pertussis) Adacel or Boostrix [id number] 76997 Given 02/08/2021 Moderna Covid-1 9 Vaccine 50mcg Booster-EMR Doc Only [id number] 64733 Given 02/08/2021 Influenza Virus Vaccine, Quadrivalent (Cciiv4), Derived From 3 Given 06/01/2020 Pfizer Sars-Cov -2 (Cov-19) vacc 30mcg/0.3ML 12Y+ EMR Doc Only 98032 Given 05/11/2020 Pfizer Sars-Cov -2 (Cov-19) vacc 30mcg/0.3ML 12Y+ EMR Doc Only 18543 Given 11/28/2013 Tdap (Tetanus, diphtheria & acel. pertussis) Adacel or Boostrix [id number] Refused 03/12/2014 Influenza Virus Vaccine, Quadrivalent, Im Use Vital Signs Date Vital Result Comment 12/01/2022 3:08pm BP Systolic 106 mmHg BP Diastolic 80 mmHg Body Temperature 98.1 F Heart Rate 72 /min Respiratory Rate 14 /min Weight 128.00 lb Weight 58.061 kg Height 69.5 inches 5'9.50" BMI (Body Mass Index) 18.6 kg/m2 O2 % BldC Oximetry 98 % [place] Body Weight 145 lb 11/08/2022 8:08am BP Systolic 120 mmHg BP Diastolic 80 mmHg Heart Rate 64 /min Weight 127.50 lb Weight 57.834 kg Height 69.5 inches 5'9.50" BMI (Body Mass Index) 18.6 kg/m2 O2 % BldC Oximetry 99 % ra [place] Body Weight 145 lb Results Test Acquired Date Facility Test Result H/L Range N ote Laboratory test finding 03/21/2023 [facility]. [address] [place] [address] [phone] PTT <pending> BMP 11/01/2022 [facility]. [address] [place], [place] [id number] [phone] Glucose 93 mg/dL 70-110 BUN 20 mg/dL 6-25 Creatinine 1.1 mg/dL 0.5-1.2 Sodium 140 mEq/L 135-145 Potassium 3.5 mEq/L 3.5-5.0 Chloride 106 mEq/L 95-107 Co-2 23 mEq/L Low 24-31 Calcium 9.9 mg/dL 8.5-10.6 GFR 57 ML/MIN/1.73SQM Low >60 Lipid 11/01/2022 [facility]. [address] [place] [address] [phone] Cholesterol 153 mg/dL 0-200 1 Triglyceride 88 mg/dL 0-150 2 HDLD 66 mg/dL See Comment 3 Measured LDL 63 mg/dL 0-130 4 Calc VLDL 17.6 mg/dL See Comment 5 Chol/HDL 2.3 RATIO See Comment 6 Non-HDL 87 mg/dL See Comment 7 Lyme Disease AB W/RFX To Blot (Igg,Igm) 09/27/[address] [facility] [place] [address] [phone] Lyme AB Screen <0.90 index Normal 8 Tick-Borne Disease, Antibody Panel 09/27/[address] [facility] [place] [address] [phone] A. Phagocytophilum AB (Igg) <1:64 <1: 64 [...] see note 15 Laboratory test finding 09/27/[address] [facility] [place] [address] [phone] Clinical PDF Report [id number] SEE IMAGE Laboratory test finding 09/26/2022 [facility] [address] [facility], [address] [place] [address] [phone] Cologuard Negative Negative 16 Lupus Anticoagulant Evaluation 09/20/[address] [id number] [phone] DRVVT Screen 34 17 PTT-LA Screen 39 18 Lupus Anticoagulant see note 19 Laboratory test finding 09/20/2022 [facility]. [address] [place] [address] [phone] Sed Rate 1 0-20 Jamila NEGATIVE C-Reactive [...] analytical performance characteristics have been determined by [employer] [facility], [place], [place]. It has not been cleared or [...] analytical performance characteristics have been determined by [employer]. It has not been cleared or approved [...] analytical performance characteristics have been determined by [email or web address], [place]. It has not been cleared or [...] analytical performance characteristics have been determined by [email or web address]. It has not been cleared or [...] Evans. et al, N Engl J Med 2014;370(14):1247-7487) The normal value (reference range) for this assay is negative. COLOGUARD RE-SCREENING RECOMMENDATION: Periodic colorectal cancer screening is an important part of preventive healthcare for asymptomatic individuals at average risk for colorectal cancer. Following a negative Cologuard result, the [place] Cancer Society and U.S. Multi-Society Task Force screening guidelines recommend a Cologuard re-screening interval of 3 years. References: [place] Cancer Society Guideline for Colorectal Cancer Screening: https://www.cancer.org/cancer/blqqi-almasz-fpavgs/vxxnyrpgu-olysrtrst-uiarymg/ac s- recommendations.html.; Kev MALDONADO, Suhail PICKETT, Karri ThomasK, Colorectal Cancer Screening: Recommendations for Physicians and Patients from the U.S. Multi- Society Task Force on Colorectal Cancer Screening , Am J Gastroenterology 2017; 112:4445-0445. TEST DESCRIPTION: Composite algorithmic analysis of stool [...] Mallory et al, N Engl J Med 2014;370(14):6146-4906.) Cologuard may produce a false negative or false positive result (no colorectal cancer or precancerous polyp present at colonoscopy follow up). A negative Cologuard test result does not guarantee the absence of CRC or advanced adenoma (pre-cancer). The current Cologuard screening interval is every 3 years. ([place] Cancer Society and U.S. Multi-Society Task Force). Cologuard performance data in a 10,000 patient pivotal study using colonoscopy as the reference method can be accessed at the following location: www.HeyKiki/results. Additional description of the Cologuard test process, warnings and precautions can be found at [email or web address].[email or web address]. 17 Reference range: <=4 5 Unit: sec Test performed at [facility]/[address] Director: SHREYA SHAY MD,PHD 18 Reference range: <=4 0 Unit: sec 19 Reference range: SEE COMMENT A Lupus Anticoagulant is not detected. Reference Range: Not Detected For additional information, please refer to http://education.Programeter.InternetVista/faq/PJC61t8 (This link is being provided for informational/ educational purposes only.) This interpretation is based on the following test results. Procedures Date Code Description Status 03/21/2023 22531 Electrocardiogram Complete C ompleted 03/21/2023 89287 Venipuncture Routine Complet ed 01/14/2023 G0008 Influenza Admin Completed 11/14/2022 [id number] Mammogram Completed 11/01/2022 67793 Venipuncture Routine Complet ed 09/27/2022 13189 Venipuncture Routine Complet ed 09/20/2022 49036 Venipuncture Routine Complet ed Medical Devices Description [...] reflux disease without esophagitis Bethany O. [place], KILN FURNITURE CASTER 11/08/2022 G47.10 Hypersomnia, unspecified Ang cynthia O. [place], KILN FURNITURE CASTER 11/08/2022 Z12.31 Encounter for sc reening mammogram for malignant neoplasm of breast Bethany O. [place], KILN FURNITURE CASTER 11/08/2022 R10.814 Left lower quadrant abdomina l tenderness Bethany O. [place], KILN FURNITURE CASTER 11/08/2022 R13.10 Dysphagia, unspecified Carlos a O. [place], KILN FURNITURE CASTER 11/08/2022 G43.009 Migraine without aura, not intractable, without status migrainosus Bethany O. [place], KILN FURNITURE CASTER 11/08/2022 F43.23 Adjustment disor maria elena with mixed anxiety and depressed mood Bethany O. [place], KILN FURNITURE CASTER 11/08/2022 Z68.1 Body mass index [BMI] 19.9 o r less, adult Bethany O. [place], KILN FURNITURE CASTER 11/01/2022 Z13.1 Encounter for sc reening for diabetes mellitus Blaise Silva MD 11/01/2022 Z13.1 Encounter for sc reening for diabetes mellitus [place] Nurse 11/01/2022 Z13.6 Encounter for sc reening for cardiovascular disorders Blaise Silva MD 11/01/2022 Z13.6 Encounter for sc reening for cardiovascular disorders Steffi Nurse 09/27/2022 R53.83 Other fatigue Bethany O. With ee, KILN FURNITURE CASTER 09/27/2022 G47.10 Hypersomnia, unspecified Ang cynthia O. [place], KILN FURNITURE CASTER 09/27/2022 R10.814 Left lower quadrant abdomina l tenderness Bethany O. [place], KILN FURNITURE CASTER 09/27/2022 R13.10 Dysphagia, unspecified Carlos a O. [place], KILN FURNITURE CASTER 09/27/2022 R63.4 Abnormal weight loss Bethany O. [place], KILN FURNITURE CASTER 09/20/2022 R53.83 Other fatigue Blaise Silva MD 09/20/2022 R53.83 Other fatigue Steffi [place] rse Plan of Treatment Future Appointment(s):* 11/13/2023 9:00 am - TREV Trejo at [place] * 11/06/2023 7:30 am - [place] [facility] [place] 12/01/2022 - TREV Kuo* T63.461A Toxic effect [...] for Referral Status Appt Christopher e Sleep Lzrn-Uqimwa-HW.Burke Please schedu le patient for a PSG, followed by an MSLT. DX: Extreme daytime fatigue, hypersomnia, normal home sleep test with an AHI of 1.9 events per hour. Patient Declined 01/25/2023 1100 [facility] Closed [address] [place] [address] [phone]
--- OUTSIDE RECORDS SUMMARY | 2023-03-28 17:30 | External Medical Summary | Continuity of Care Document ---
Author Name Unknown Organization [facility] Address [address] [place] [address] Phone [phone] Care Team Providers Care Photography Colorist Name Role Phone Cardiology - Cardiovascular Disease Care Team In formation Drawbench Operator Unavailable Sean Ramirez DMD Care Team Information Receiv er [phone] Problems Active Problems Provider Date Refractory migraine [...] SIG Qnty Indications Order ing Provider Date [id number] Capsules DR take 1 capsule daily for esophageal reflux 90caps K21.9 Jake Rush MD 03/02/2023 [id number] Tablets take 3 tablets for days 1-3, take 2 tablets for days 4-6, take 1 tablet for days 7-10 19tabs T63.461A Jake Rush MD 12/01/2022 [id number] Implant [facility]; 08/24/2020 Lorraine Rowley PA-C [id number] Tablets Dispers 1 at onset migraine. only 1 dose/24 hours Unknown Pantoprazole [id number] Tablets DR 1 by mouth every day K21.9 Unknown Amitriptyline [id number] Tablets take 1 tablet by mouth everyday at bedtime Unknown Immunizations CPT Code Status Date Vaccine Lot # [id number] Given 01/14/2023 Sarscov2 Vaccin e 50 mcg/0.5 ML For Im Use 12 Yrs And Older [id number] 92977 Given 01/14/2023 Influenza Vacci ne Quadrivalent Preser/Antibiotic Free Im Use [id number] 56618 Given 02/01/2022 Moderna Sars-Co v-2 (Covid-19) Vaccine, BiValent Booster 12y+ [id number] [id number] Given 02/01/2022 Influenza Virus Vaccine, Quadrivalent (Cciiv4), Derived From Cell [id number] 67849 Given 02/01/2022 Tdap (Tetanus, diphtheria & acel. pertussis) Adacel or Boostrix [id number] Given 02/08/2021 Moderna Covid-1 9 Vaccine 50mcg Booster-EMR Doc Only [id number] 24020 Given 02/08/2021 Influenza Virus Vaccine, Quadrivalent (Cciiv4), Derived From 1 Given 06/01/2020 Pfizer Sars-Cov -2 (Cov-19) vacc 30mcg/0.3ML 12Y+ EMR Doc Only [id number] Given 05/11/2020 Pfizer Sars-Cov -2 (Cov-19) vacc 30mcg/0.3ML 12Y+ EMR Doc Only [id number] Given 11/28/2013 Tdap (Tetanus, diphtheria & acel. pertussis) Adacel or Boostrix [id number] Refused 03/12/2014 Influenza Virus Vaccine, Quadrivalent, Im Use Vital Signs Date Vital Result Comment 12/01/2022 3:08pm BP Systolic 106 mmHg BP Diastolic 80 mmHg Body Temperature 98.1 F Heart Rate 72 /min Respiratory Rate 14 /min Weight 128.00 lb Weight 58.061 kg Height 69.5 inches 5'9.50" BMI (Body Mass Index) 18.6 kg/m2 O2 % BldC Oximetry 98 % [place] Body Weight 145 lb 11/08/2022 8:08am BP Systolic 120 mmHg BP Diastolic 80 mmHg Heart Rate 64 /min Weight 127.50 lb Weight 57.834 kg Height 69.5 inches 5'9.50" BMI (Body Mass Index) 18.6 kg/m2 O2 % BldC Oximetry 99 % ra [place] Body Weight 145 lb Results Test Acquired Date Facility Test Result H/L Range N ote PT Inr MULE PACKER 03/21/2023 [facility]. [address] [place] [address] [phone] PT 10.9 SEC 10.0-12.4 1, 2 Inr 0.9 RATIO Laboratory test finding 03/21/2023 [facility]. [address] [place], [place] [address] [phone] PTT 35.7 SEC 27.0-38.1 3 Abo Group & RH Type 03/21/[address] [facility] [place] [address] [phone] Abo Group A RH Type RH(D) POSITIVE 4 Laboratory test finding 03/21/[address] [facility] [place] [address] [phone] Clinical PDF Report [id number] SEE IMAGE CBC W/Diff 03/21/2023 [facility]. [address] [place], [place] [id number] [phone] WBC 6.0 10^3/M3 3.1-9 .2 5 RBC 4.87 10^6/M3 3.70-5.50 HGB 14.2 GR/DL 11.5-16.1 HCT 42.9 % 34.5-47.8 MCV 88.2 CUMICR 82.6-95.8 MCH 29.1 PICOGR 27.9-32.9 MCHC 33.0 % 32.6-35.4 RDW 13.4 % 11.4-14.6 PLT COMMENT 10^3/M3 140-350 6 MPV 9.0 CUMICR 7.0-10.6 %Neut 57.3 % 40.0-75.0 %Lymph 31.8 % 17.0-45.0 %[place] 8.2 % 1.0-11.0 %Eos 1.8 % 0.0-6.0 %Baso 0.9 % 0.0-2.0 #Neut 3.4 10^3/M3 1.5-8.0 #Lymph 1.9 10^3/M3 0.8-3.2 #[place] 0.5 10^3/M3 0.0-0.8 #Eos 0.1 10^3/m3 0.0-0.4 #Baso 0.1 10^3/m3 0.0-0.2 Platelet Est PLATELET CLUMPIN <SEE NOTE> 7 BMP 11/01/2022 [facility]. [address] [place] [address] [phone] Glucose 93 mg/dL 70-110 BUN 20 mg/dL 6-25 Creatinine 1.1 mg/dL 0.5-1.2 Sodium 140 mEq/L 135-145 Potassium 3.5 mEq/L 3.5-5.0 Chloride 106 mEq/L 95-107 Co-2 23 mEq/L Low 24-31 Calcium 9.9 mg/dL 8.5-10.6 GFR 57 ML/MIN/1.73SQM Low >60 Lipid 11/01/2022 [facility]. [address] [place] [address] [phone] Cholesterol 153 mg/dL 0-200 8 Triglyceride 88 mg/dL 0-150 9 HDLD 66 mg/dL See Comment 10 Measured LDL 63 mg/dL 0-130 11 Calc VLDL 17.6 mg/dL See Comment 12 Chol/HDL 2.3 RATIO See Comment 13 Non-HDL 87 mg/dL See Comment 14 Lyme Disease AB W/RFX To Blot (Igg,Igm) 09/27/[address] [facility] [place] [address] [phone] Lyme AB Screen <0.90 index Normal 15 Tick-Borne Disease, Antibody Panel 09/27/[address] [facility] [place] [address] [phone] A. Phagocytophilum AB (Igg) <1:64 <1: 64 A. Phagocytophilum AB (Igm) <1:20 <1:20 Interpretation see note 16 Comment see note 17 Babesia Duncani (Wa1) Antibody (Igg), Ifa <1:256 Kalpana l 18 Babesia Microti AB (Igg) <1:64 titer <1:64 Babesia Microti AB (Igm) <1:20 titer <1:20 Interpretation see note 19 Lyme AB Screen <0.90 Index <0.90 20 E. Chaffeensis AB Igg <1:64 <1:64 E. Chaffeensis AB Igm <1:20 <1:20 Interpretation see note 21 Comment see note 22 Laboratory test finding 09/27/[address] [place] [address] [phone] Clinical PDF Report [id number] SEE IMAGE Laboratory test finding 09/26/[address] [facility] [address] [place] [address], [address] [place] [address] [phone] Cologuard Negative Negative 23 1 [id number] Spin - separate - FREEZE 2 NORMAL PATIENT CONTR OL IS 11.5 INR REFERENCE RANGES: PROPHYLAXIS IN CARDIC DISEASE 2.0-3.0 PROSTHETIC HEART VALVE 3.0-4.5 RECURRENT EMBOLISM 3.0-4.5 PROPHLAXIS IN HIGH RISK SURGERY 2.0-2.5 TREATMENT IN PULMONARY EMBOLIS 2.0-3.0 3 UNABLE TO VERIFY ADOLFO BRONSON TUBE VOLUME OF ALIQUOTTED SAMPLE. RESULT ACCURACY DEPENDENT ON PRIMARY TUBE VOLUME. 4 For additional infor shade, please refer to http://education.Evtron/faq/UCP621 (This link is being provided for informational/ educational purposes only.) 5 [id number] 6 PLATELET COMMENT* * UNABLE TO DETERMINE EXACT PLATELET COUNT DUE TO PLATELET CLUMPING. PLATELET COUNT APPEARS TO BE ADEQUATE. 7 PLATELET CLUMPING OB SERVED ON SLIDE 8 CHOLESTEROL Less than 200mg/dl Low risk 201-239 mg/dl Borderline risk Equal to or greater 240mg/dl High risk 9 TRIGLYCERIDES Less than 150mg/dl Normal 150-199mg/dl Borderline 200-499mg/dl High Greater than 500mg/dl Very High 10 HDL <40mg/dl Elevated Risk 41-59mg/dl Risk >=60mg/dl Least Risk 11 LDL <100mg/dl Optimal 100-129mg/dl Near Optimal 130-159mg/dl Borderline High 160-189mg/dl High >=190 Very High 12 VLDL Less than 30mg/dl Normal 13 CHOL/HDL <4.0 Optimal 4.0-5.0 Borderline >6.0 High Risk 14 NON-HDL 30mg/dl higher than LDL Target 15 Index Interpretatio n ----- < 0.90 Negative [...] the period when erythema migrans is apparent. 16 Antibody Not Detecte d 17 Anaplasma phagocytop hilum is the tick-borne agent causing Human Granulocytic Ehrlichiosis (HGE). HGE is distinct and separate from Human Monocytic Ehrlichiosis (HME), caused by Ehrlichia chaffeensis. Serologic crossreactivity between A. phagocyto- philum and E. chaffeensis is minimal (5-15%). This test was developed and its analytical performance characteristics have been determined by [facility], [place], [place]. It has not been cleared or approved by the U.S. Food and Drug Administration. This assay has been validated pursuant to the CLIA regulations and is used for clinical purposes. 18 REFERENCE RANGE: <1: 256 INTERPRETIVE CRITERIA: <1:256 Antibody not detected > or = 1:256 Antibody detected Babesia duncani, also known as WA1, has been associated with symptoms similar to those caused by Babesia microti. Little, if any, cross-reactivity occurs between Babesia microti and WA1. This test was developed and its analytical performance characteristics have been determined by [facility]. It has not been cleared or approved by FDA. This assay has been validated pursuant to the CLIA regulations and is used for clinical purposes. 19 Antibody Not Detecte d Elevated antibody levels [...] analytical performance characteristics have been determined by [facility], [place]. It has not been cleared or approved by the U.S. Food and Drug Administration. This assay has been validated pursuant to the CLIA regulations and is used for clinical purposes. 20 Reference ranges: Index Interpretation ----- <0.90 Negative [...] patient for whom the test was ordered. 21 Antibody Not Detecte d 22 Ehrlichia chaffeenis has been identified as the [...] analytical performance characteristics have been determined [facility] [place], [place]. It has not been cleared or approved by the U.S. Food and Drug Administration. This assay has been validated pursuant to the CLIA regulations and is used for clinical purposes. 23 NEGATIVE TEST RESULT . A negative Cologuard [...] Evans. et al, N Engl J Med 2014;370(14):8185-6452) The normal value (reference range) for this assay is negative. COLOGUARD RE-SCREENING RECOMMENDATION: Periodic colorectal cancer screening is an important part of preventive healthcare for asymptomatic individuals at average risk for colorectal cancer. Following a negative Cologuard result, the [place] [employer] and U.S. Multi-Society Task Force screening guidelines recommend a Cologuard re-screening interval of 3 years. References: [place] [employer] Guideline for Colorectal Cancer Screening: https://www.cancer.org/cancer/horkk-rwieyd-tfuzwk/wvhuxcfxc-cjzzoverp-lgugvei/ac s- recommendations.html.; Kev MALDONADO, Suhail PICKETT, Karri ThomasK, Colorectal Cancer Screening: Recommendations for Physicians and Patients from the U.S. Multi- Society Task Force on Colorectal Cancer Screening , Am J Gastroenterology 2017; 112:9445-3003. TEST DESCRIPTION: Composite algorithmic analysis of stool [...] Evans. et al, N Engl J Med 2014;370(14):7067-5995.) Cologuard may produce a false negative or false positive result (no colorectal cancer or precancerous polyp present at colonoscopy follow up). A negative Cologuard test result does not guarantee the absence of CRC or advanced adenoma (pre-cancer). The current Cologuard screening interval is every 3 years. ([place] [employer] and U.S. Multi-Society Task Force). Cologuard performance data in a 10,000 patient pivotal study using colonoscopy as the reference method can be accessed at the following location: www.AllPeers/results. Additional description of the Cologuard test process, warnings and precautions can be found at www.cologuard.com. Procedures Date Code Description Status 03/21/2023 28286 Electrocardiogram Complete C ompleted 03/21/2023 13286 Venipuncture Routine Complet ed 01/14/2023 G0008 Influenza Admin Completed 11/14/2022 [id number] Mammogram Completed 11/01/2022 06413 Venipuncture Routine Complet ed 09/27/2022 96962 Venipuncture Routine Complet ed Medical Devices Description [...] or less, adult Office Visit 09/27/2022 2:00p Steffi Martinez, TREV R53.83 Other fatigue G47.10 Hypersomnia, unspeci fied R10.814 Left lower quadrant abdominal tenderness R13.10 Dysphagia, unspecifi ed R63.4 Abnormal weight loss Assessments Date Code Description Provider 03/21/2023 Z01.818 Encounter for ot her preprocedural examination Bethany Martinez, TREV 03/21/2023 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 Bethany Martinez, TREV 03/21/2023 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 Bethany Martinez, TREV 03/21/2023 M26.19 Other specified anomalies of jaw-cranial base relationship Bethany Martinez, TREV 03/21/2023 Z13.6 Encounter for sc reening for cardiovascular disorders Bethany Martinez, TREV 03/21/2023 Z01.810 Encounter for pr eprocedural cardiovascular examination TREV Trejo 01/14/2023 Z23 Encounter for immunization Taiwo Silva MD 01/14/2023 Z23 Encounter for immunization Bull Kapadia 12/01/2022 T63.461A Toxic effect of venom of wasps, accidental (unintentional), initial encounter TREV Kuo 11/08/2022 Z00.00 Encounter for ge neral adult medical examination without abnormal findings TREV Trejo 11/08/2022 K21.9 Gastro-esophagea l reflux disease without esophagitis TREV Trejo 11/08/2022 G47.10 Hypersomnia, unspecified Ang cynthia Martinez, TREV 11/08/2022 Z12.31 Encounter for sc reening mammogram for malignant neoplasm of breast Bethany O. Dayton, TREV 11/08/2022 R10.814 Left lower quadrant abdomina l tenderness Bethany O. Dayton, TREV 11/08/2022 R13.10 Dysphagia, unspecified Carlos a O. Dayton, TREV 11/08/2022 G43.009 Migraine without aura, not intractable, without status migrainosus Bethany O. Dayton, TREV 11/08/2022 F43.23 Adjustment disor maria elena with mixed anxiety and depressed mood Bethany O. Dayton, TREV 11/08/2022 Z68.1 Body mass index [BMI] 19.9 o r less, adult Bethany O. Dayton, TREV 11/01/2022 Z13.1 Encounter for sc reening for diabetes mellitus Blaise Silva MD 11/01/2022 Z13.1 Encounter for sc reening for diabetes mellitus [facility] 11/01/2022 Z13.6 Encounter for sc reening for cardiovascular disorders Blaise Silva MD 11/01/2022 Z13.6 Encounter for sc reening for cardiovascular disorders [facility] 09/27/2022 R53.83 Other fatigue Bethany O. With ee, TREV 09/27/2022 G47.10 Hypersomnia, unspecified Ang cynthia O. [place], TREV 09/27/2022 R10.814 Left lower quadrant abdomina l tenderness Bethany O. [place], TREV 09/27/2022 R13.10 Dysphagia, unspecified Carlos a O. Dayton, TREV 09/27/2022 R63.4 Abnormal weight loss Bethany O. DaytonTREV linares Plan of Treatment Future Appointment(s):* 11/13/2023 9:00 am - TREV Tre[facility] at [facility] * 11/06/2023 7:30 am - [facility] 12/01/2022 - TREV Kuo* T63.461A Toxic effect [...] for Referral Status Appt [facility] Please schedu le patient for a PSG, followed by an MSLT. DX: Extreme daytime fatigue, hypersomnia, normal home sleep test with an AHI of 1.9 events per hour. Patient Declined 01/25/2023 [address] [facility] Closed [address] [place] [address] [phone]
--- OUTSIDE RECORDS SUMMARY | 2023-03-28 17:31 | External Medical Summary ---
Author Name Unknown Address Unknown Organization [facility]:[address] [place] [address] Laboratory Report Ordering Provider Test Date Status null,[facility] SQL DEVELOPER 03/21/2023 10:19 Final Observation Date Value Abnormality Reference (Units ) Status WBC 03/21/2023 15:02 6.0 3.1-9.2 (10^3 /M3) Final RBC 03/21/2023 15:02 4.87 3.70-5.50 (10 ^6/M3) Final Hemoglobin 03/21/2023 15:02 14.2 11.5-16.1 (G R/DL) Final HCT 03/21/2023 15:02 42.9 34.5-47.8 (%) Final MCV 03/21/2023 15:02 88.2 82.6-95.8 (CU MICR) Final MCH 03/21/2023 15:02 29.1 27.9-32.9 (PI CO GR) Final MCHC 03/21/2023 15:02 33.0 32.6-35.4 (%) Final RDW 03/21/2023 15:02 13.4 11.4-14.6 (%) Final PLT 03/21/2023 15:02 COMMENT 140-350 (10^3 /M3) Final
PLATELET COMMENT<b r/>UNABLE TO DETERMINE EXACT PLATELET COUNT DUE TO PLATELET CLUMPING. PLATELET
COUNT APPEARS TO BE ADEQUATE.
null MPV 03/21/2023 15:02 9.0 7.0-10.6 (CU MICR) Final Neutrophils/100 leukocytes in Blood 03/21/2023 15:02 57.3 40.0-75.0 (%) Fin al Lymphs % 03/21/2023 15:02 31.8 17.0-45.0 (%) Final Monos 03/21/2023 15:02 8.2 1.0-11.0 (%) Final %EOS 03/21/2023 15:02 1.8 0.0-6.0 (%) F inal Basos 03/21/2023 15:02 0.9 0.0-2.0 (%) F inal Neutrophils [#/volume] in Semen by Manual count 03/21/2023 15:02 3.4 1.5-8.0 (10^3/M3) Final Lymphs % 03/21/2023 15:02 1.9 0.8-3.2 (10^3 /M3) Final Monos 03/21/2023 15:02 0.5 0.0-0.8 (10^3 /M3) Final #EOS 03/21/2023 15:02 0.1 0.0-0.4 (10^3 /m3) Final #BASO 03/21/2023 15:02 0.1 0.0-0.2 (10^3 /m3) Final PLATELET EST 03/21/2023 15:02 PLATELET CLUMPI NG OBSERVED ON SLIDE Final Performing Location [facility] [address] [place] [address]
--- OUTSIDE RECORDS SUMMARY | 2023-03-28 17:31 | External Medical Summary ---
Author Name Unknown Address Unknown Organization [facility]:[place] [address] [place] [address] Laboratory Report Ordering Provider Test Date Status null,[facility] BUSINESS JOB TITLES 03/21/2023 10:20 Final Observation Date Value Abnormality Reference (Units ) Status Prothrombin time (PT) in Blood by Coagulation assay 03/21/2023 14:38 10.9 10.0-12.4 (SEC) Final
NORMAL PATIENT CONTROL IS 11.5

INR REFERENCE RANGES:

PROPHYLAXIS IN CARDIC DISEASE 2.0-3.0
PROSTHETIC HEART VALVE 3.0-4.5
RECURRENT EMBOLISM 3.0- 4.5
PROPHLAXIS IN HIGH RISK SURGERY 2.0-2.5
TREATMENT IN PULMONARY EMBOLIS 2.0-3.0

null INR 03/21/2023 14:38 0.9 (RATIO) Jose Juan garcia Performing Location [facility] [address] [place] [address]
--- OUTSIDE RECORDS SUMMARY | 2023-03-28 17:31 | External Medical Summary ---
Author Name Unknown Address Unknown Organization [facility] [address] [place] [address] Laboratory Report Ordering Provider Test Date Status vinh,[facility] 03/21/2023 10:20 Final Observation Date Value Abnormality Reference (Units ) Status aPTT 03/21/2023 14:38 35.7 27.0-38.1 (SE C) Final UNABLE TO VERIFY PRIMARY TUB E VOLUME OF ALIQUOTTED SAMPLE. RESULT ACCURACY
DEPENDENT ON PRIMARY TUBE VOLUME. Performing Location [facility] [address] [place] [id number]
--- NOTE | 2023-03-28 17:43 | XRay Report ---
XR mandible <4V HISTORY: 48 years-old Female Status Post-Op Surgery AP Mandibular and Jaw View COMPARISON: Outside hospital [facility] facial study 12/12/2022 TECHNIQUE: 2 views of the mandible FINDINGS: Numerous maxillary and mandibular dental implants are noted. Bilateral mandibular body fractures are present with mild displacement measuring up to approximately 5 mm fixated by 3 screws bilaterally wit h a total of 6 screws. Postoperative soft tissue swelling with deep tissue air. IMPRESSION: Fixated acute bilateral mandibular fractures with mild displacement, soft tissue swelling and postoperative deep tissue air. ACT 112: Negative or not required by law. The above report was generated using voice recognition software. It may contain grammatical, syntax o r spelling errors. Electronically signed by: Daniel Nolan M.D. 03/28/2023 5:41 PM
--- NOTE | 2023-03-28 18:01 | Anesthesiology Progress Note ---
Date of Service March 28, 2023 Anesthesia Post Procedure Vital Signs Vital Signs: Temp Pulse Pulse Resp BP Pulse Ox O2 Del Method 03/28/23 17:30 70 12 121/84 94 Room Air 03/28/23 17:20 75 18 117/84 96 Room Air 03/28/23 17:10 79 15 112/81 96 Room Air 03/28/23 17:02 97.9 F 76 12 115/79 100 Oxymask 03/28/23 11:47 Room Air 03/28/23 11:25 98.4 F 105 H 20 139/99 99 Room Air O2 Flow Rate 03/28/23 17:30 03/28/23 17:20 03/28/23 17:10 03/28/23 17:02 6 03/28/23 11:47 03/28/23 11:25 Pain Intensity Bilateral Face: Pain Intensity: 5 Transfer of Care Handoff Completed per policy Notes Mental Status: alert / awake / arousable and participated in evaluation Patient Amnestic to Procedure: Yes Nausea / Vomiting: adequately controlled Pain: adequately controlled Airway Patency, RR, SpO2: stable & adequate BP & HR: stable & adequate Hydration State: stable & adequate Anesthetic Complications: no major complications apparent and Pt Satisfied with anesthetic care
[2023-03-28] MEDS: KETOROLAC 30 MG/ML VIAL IV SCH (18:35)
[2023-03-28] MEDS: KETOROLAC 30 MG/ML VIAL ONE (19:50)
[2023-03-28] MEDS: MoRPHine SULFATE 4 MG/ML 1 ML CARP\\VIAL IV PRN (19:52)
[2023-03-28] MEDS: TRIAMCINOLONE ACET 0.1% OINT 15 GM TUBE ONE (19:56)
[2023-03-28] MEDS: ARTIFICIAL TEARS OP OINT 3.5 GM TUBE OP STA (21:04)
[2023-03-28] MEDS: ceFAZolin 1000MG 1,000 MG/7.5 ML SYR IV SCH (21:04)
[2023-03-28] MEDS: TRIAMCINOLONE ACET 0.1% OINT 15 GM TUBE EXT SCH (21:05)
[2023-03-28] MEDS: dexAMETHasone 6 MG in SYRINGE 0 ML IV SCH (21:05)
[2023-03-28] MEDS: CHLORHEXIDINE GLUCONATE 0.12% 480 ML MT SCH (21:06)
[2023-03-28] MEDS: ONDANSETRON INJ 2 MG/ML 2 ML VIAL IV PRN (21:57)
[2023-03-29] MEDS: HYDROcodone/APAP 7.5/325mg/15mL ELIX 15 ML/CUP PO PRN (04:13)
[2023-03-29] MEDS: COUGH DROP (SUGAR FREE) LOZ 24 LOZ/1 BOX BUCCAL PRN (11:07)
--- NOTE | 2023-03-29 11:56 | Oral/Maxillofacial Progress Nt ---
Date of Service March 29, 2023 Assessment & Plan Admission and Anticipated Discharge Date Admission Date: March 28, 2023 Subjective Orthognathic surgery post op note at 12 hours Not out of bed, migraine headache, dizziness noted ROM improving Tissue tone, gingival tissue--excellent Occlusion very stable with a reproducible bite. No TMJ issues-pain, nose, pop. No nasal congestion or bleeding, septum well positioned. No sinus issues Facial alignment excellent No nerve issues Not ready to consider discharge as she is dizzy not out of bed, has a considerable migrans headache Not not very good. She has history of dysphagia and as a result of the oral surgery and intubation this is worse. Hopefully over time this will improve. At present Ilana is very lethargic, can`t sit up in bed or get out of bed. I will see her later this afternoon and decide on when she she meets criteria for discharge at present the criteria has not been met Next appointment set up for: Results & Data Vital Signs (Past 12 Hours) Vital Signs Temp Pulse Resp BP Pulse Ox O2 Del Method 03/29/23 07:16 36.5 C 73 16 120/83 98 Room Air 03/29/23 04:07 87 16 132/88 96 Room Air 03/28/23 22:45 36.7 C 83 16 113/76 95 Room Air PG Care Time/CCT Total # of Minutes Spent Total Time Spent with Patient: Total time spent is greater than 50% in coordination of care (as documented) at patient's floor/unit and/or counseling patient: Coding Level of Care Code None
[2023-03-29] MEDS: LORazepam 1 MG in SYRINGE 0.5 ML IV PRN (14:58)
--- NOTE | 2023-03-29 16:54 | Oral/Maxillofacial Progress Nt ---
Date of Service March 29, 2023 Assessment & Plan Admission and Anticipated Discharge Date Admission Date: March 28, 2023 Subjective 4:45 pm I came to see Ilana this afternoon. She finally stopped felling nauseated with the use of low does Ativan. She STILL has not gotten out of bed or can sit up w/o dizziness. Her migraine has become less but still present that she needs pain control. Her swallowing is getting better but still not taken anything other then water. She will try some soft and full liquids later. She is not ready for discharge tonight due to nausea, poor oral intake, dizziness, not able to sit up or get out of bed. I will keep her this evening and re evaluate in the morning. I discussed trying to drink as much as possible, try to sit up in bed and ask for help regarding getting out of bed and going to the bathroom. Hopefully as her N/V and Migraines improve Ilana will be able to take more fluids and fell comfortable to get out of bed and ambulate. From the surgical point of view -stable occlusion, no paraesthesia, excellent occlusion, swelling as expected. Results & Data Vital Signs (Past 12 Hours) Vital Signs Temp Pulse Resp BP Pulse Ox O2 Del Method 03/29/23 14:45 36.6 C 96 H 16 117/80 98 Room Air 03/29/23 07:16 36.5 C 73 16 120/83 98 Room Air PG Care Time/CCT Total # of Minutes Spent Total Time Spent with Patient: Total time spent is greater than 50% in coordination of care (as documented) at patient's floor/unit and/or counseling patient: Coding Level of Care Code 74504 SUB INP/OBS CARE 25MIN
--- NOTE | 2023-04-02 08:00 | Operative Report ---
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 (4) Failing dental implant I identified the patient and participated in the time-out.: Yes Procedure Operation Date: 03/28/23 12:40 Actual Procedures p Sagittal Splint Lower Jaw Osteotomy, Placement of Surgical Splint and Fixation Wires, Removal Failing Dental Implants - Sean Ramirez DMD Surgeon Sean Ramirez DMD Exploration Engineer none Estimated Blood Loss 25 Findings Consistent with Post-Op Diagnosis Specimens none Drains none Anesthesia Type General Complications none Indications mandibular retrognathism with deep bite Description of Procedure Pre-Op Diagnosis: Mandibular Retrognathia, Deep Bite Deformity Post-Op Diagnosis: Mandibular Retrognathia, Deep Bite Deformity Actual Procedures p Sagittal Split Osteotomy of Lower Jaw with Fixation placement of surgical splint Placement of fixation devices (Not Applicable) - Sean Ramirez DMD [facility] Post Operative Report Pre & Post Diagnosis Pre-Op Diagnosis: Class II Malocclusion with shift to the right Post-Op Diagnosis: Class II Malocclusion with shift to the right I identified the patient and participated in the time-out.: Yes Procedure Actual Procedures p Sagittal split of lower jaw, Placement of surgical splint(Not Applicable) - Sean Ramirez DMD DESCRIPTION OF PROCEDURE: Bilateral sagittal split CPT 85585 Placement of surgical splint CPT 46513 Placement of fixation devices CPT 70642 After this patient is cleared to undergo general anesthesia, she was brought down to the operating room and placed under. General anesthesia via nasotracheal intubation. After adequate anesthesia was obtained, the patient was prepped and draped in the usual manner for a mandibularsagittal osteotomy. The patient had a class II with deviation to the right. This was a complex deformity in 3 D. . After the facial area was draped with the appropriate sterile technique, local anesthesia was infiltrated into themandibular tissues to allow for hemostasis with local anesthetic effect. Timeout-patient was ID as Ilana Pereira,all equipment was present, fire safety checked all agreed After an adequate period of time to allow for the hemostasis and local anesthetic effect, an oropharyngeal throat pack was placed, the oral cavity was irrigated and suctioned dried with Peridex mouth rinse. At this time, the appropriate time outs to verify the patient, position, type of surgery,antibiotics and equipment once everyone agreed we then started the operative procedure. Right side sagittal split Using an electrocautery instrument, an incision approximately 1.5 cm in length was made in the external oblique region on the right side. The tissue was reflected to expose the bone. Once the bone was reflected; I had good visualization of the inferior border of the mandible, the angle of the mandible, the lingual aspect of the mandible and the nerve as it entered the mandibular foramen. Now with a fiberoptic retractor I was able to hold the lingual tissue out of the way and had good visualization of the lingual cortical plate and the nerve entrance into the bone. With the large round prosper, I was able to remove the spinous processes of the external oblique ridge. Now using a reciprocating saw, an osteotomy was made parallel to the occlusion plane of the mandibular molar teeth approximately 1-2 mm above the nerve. I then used the spear point Molina prosper very carefully to make a trough in the external oblique ridge from the previously made osteotomy to an area between the 1st and 2nd molars. I now continued the osteotomy parallel to the long axis of the lower molarsinferiorly to the inferior border of the mandible, taking great care to avoid any trauma to the neurovascular bundle and to ensure that I cut through the cortical plate into the marrow vascular channel. It was noted that the bone was extremely thick and dense with a minimal marrow space. I was not able to enter into the marrow as none was present-dense cortical bone was present. I needed to resort to osteotomies to complete the bone cuts. Splitting right side With the use of a bone pot tender and a small osteotome, I was able to complete the sagittal split of the right mandibular ramus. Great care was taken to avoid any trauma to the neurovascular bundle. Because of the thickness of the bone, the nerve was left in the distal segment that will be repositioned. Due to the bony anatomy of the osteotomy, I did a lot of bone reduction to allow for the mandible to be passively positioned without any pressure on the nerve or pressure that could cause distortion of the mandibular condyle. I irrigated the areas with normal saline, made sure that the neurovascular bundles were intact. Hemostasis was in excellent control. It was noted that there were few small bony interferences that trimmed with the use of rongeurs and rotary instrument. Once this was accomplished I packed the side with a gauze sponge to prevent any pressure on the nerve and to control bleeding. At this time, I turned my attention to the left side. Left side sagittal split Using an electrocautery instrument, an incision approximately 1.5 cm in length was made in the external oblique region on the right side. The tissue was reflected to expose the bone. Once the bone was reflected; I had good visualization of the inferior border of the mandible, the angle of the mandible, the lingual aspect of the mandible and the nerve as it entered the mandibular foramen. Now with a fiberoptic retractor I was able to hold the lingual tissue out of the way and had good visualization of the lingual cortical plate and the nerve entrance into the bone. With the large round prosper, I was able to remove the spinous processes of the external oblique ridge. Now using a reciprocating saw, an osteotomy was made parallel to the occlusion plane of the mandibular molar teeth approximately 1-2 mm above the nerve. I then used the spear point Molina prosper very carefully to make a trough in the external oblique ridge from the previously made osteotomy to an area between the 1st and 2nd molars. I now continued the osteotomy parallel to the long axis of the lower molarsinferiorly to the inferior border of the mandible, taking great care to avoid any trauma to the neurovascular bundle and to ensure that I cut through the cortical plate into the marrow vascular channel. It was noted that the bone was extremely thick and dense with a minimal marrow space.I was not able to enter into the marrow as none was present-dense cortical bone was present. I needed to resort to osteotomes to complete the bone cuts. Splitting left side with the use of a bone pot tender and a small osteotome, I was able to complete the sagittal split of the left mandibular ramus. Great care was taken to avoid any trauma to the neurovascular bundle. Because of the thickness of the bone, the nerve was left in the segment that will be repositioned. Due to the bony anatomy of the osteotomy, I did a lot of bone reduction to allow for the mandible to be passively positioned without any pressure on the nerve or pressure that could cause distortion of the mandibular condyle. Once this was accomplished on the left side I turned my attention to the back to the right side making sure that the two fragments would lay passively over each other and the osteotomy site was then trimmed to ensure that there were no bony interferences I irrigated the areas with normal saline, made sure that the neurovascular bundles were intact. Hemostasis was in excellent control. It was noted that there were few small bony interferences that trimmed with the use of rongeurs and rotary instrument. Establishing the occlusion I preformed surgical appliance was made in the ideal occlusion. I placed this on the mandible and then using an occlusal wafer I established the ideal occlusion with digital pressure. It was noted that I needed to reflect the soft tissue further to get a passive fitting--this was accomplished with J periosteal elevators. I placed 2 IMF screws on the upper and lower jaw to allow for establishing fixation with direct fixation. Once the right and left sides were completely cut and the soft tissue was reflec deb to allow repositioning the final occlusal splint was applied to the mandible and the mandibular complex with the splint was easily rotated and held into position and stabilized with 25 gauge stainless steel wires to the maxilla. Once both sides were split and the segments were layingpassively over each other, the osteotomy site was then trimmed to ensure that there were no bony interferences. I irrigated the areas with normal saline, made sure that the neurovascular bundles were intact and that hemostasis was in excellent control. Once the segments were positioned the 7 mm advancement was noted. This was a very complex 3-D movement. The soft tissue was reflected to allow a passive advancement. Much bone adjustment was necessary due to the density of the bone and complex 3-D movement/rotation Applying Direct osseous fixation It was noted that there were few small bony interferences which were easily trimmed with the use of rongeurs and rotary instrument. I was now ready to place the fixation screws. Right side--I used a small clasp, placed between the two fragments and noted that the fragments were seating extremely passively over each other. I did some further trimming to ensure that there was no pressure on the nerve and to ensure that the condyle was well seated. Being satisfied with this, I passed an 11 blade through the cheek, a trocar was placed and then 3 interosseous holes were placed above the neurovascular bundle, but below the external oblique ridge for direct osseous fixation of the right mandibular fragment. Left side----I used a small clasp, placed between the two fragments and noted that the fragments were seating extremely passively over each other. I did some further trimming to ensure that there was no pressure on the nerve and to ensure that the condyle waswell seated. Being satisfied with this, I passed an 11 bladethrough the cheek, a trocar was placed and then 3 interosseous holes were placed above the neurovascular bundle, but below the external oblique ridge for direct osseous fixation of the left mandibular fragment. I now checked both osteotomy sites and found them to be extremely stable. At this time, the temporary intermaxillary fixation was removed. The occlusion was extremely stable and reproducible. The patient had a good range of motion without clicks or pops or deviations. The sites were irrigated and checked for bleeding. I inspected the lingual aspects to make sure that the screws did not perforate the lingual cortical plate--were necessary the screws were adjusted to insure a flush fit. Closure I turned my attention first to the right side; with the use of a 4-0 Vicryl suture, I was able to suture the osteotomy site. Once this was accomplished, we turned our attention to the left side and a similar suturing technique was carried out. Using a 6-0 nylon suture 2 skin sutures in each cheek site was used to close the skin. I now removed the IMF screws as the occlusion and bone sites were so stable no temporary fixation was necessary Recovery The patient was allowed to recover in the usual manner. A check to insure all instrument and sponge count was correct was accomplished and verified the oral cavity was suctioned and Ipassed an oral gastric tube. When fully recovered, extubation occurred. All vital signs were extremely stable. Now the anesthesia department transferred the patient to the hospital litter to be taken to the recovery room. I am very pleased with the osteotomy sites, the positioning of the nerve, and the functional improvement that was gained by the osteotomy. When I completedthe case I inspected the sites to insure all bleeding was controlled and the fixation was stable. I removed the throat pack and suctioned the throat and placed an OG tube. The patient tolerated the surgery verywell. We will be planing a 23 hr observation as planned. I will see Ilana early tomorrow for evaluation. I will follow the patient in my office, Rx and instructions will be given upon discharge. I attest to the content of the Intraoperative Record and any orders documented therein. Any exceptions are noted below.
--- NOTE | 2023-04-04 21:16 | Discharge Summary ---
Date of Service March Admission HPI Per Admitting Provider HPI Ilana is now ready to consider the surgery to correct her jaw deformity and functional impairments. 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 She would like to plan the surgery during her off season which is between Jan and early April. I updated her case and changes which will effect the final treatment plan as well as scientologist of her teeth post op. I have finalize the treatment plan with Dr Melissa Sneed ([place]) A CT was was reviewed to help plan the surgery and evaluate the bone quality and nerve relationship to the osteotomy sites. The surgical appliance was placed and checked for fit. 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 Clinical and radiographic examination revealed that Ilana has a significant skeletal malocclusion. This is associated with an abnormal growth of both the upper and lower jaw. Mandibular Retrognathism M26.04 Deep bite closed vertical M26.23 The goal of this proposed jaw surgery is to re-establish the functional capacity of the patient`s bite. This has been brought about primarily by an unbalanced jaw relationship and resulting lack of occlusion. My patient`s main complaint is difficulty with mastication and chronic lip,tongue and cheek bitting. The primary goal of this treatment is to restore normal function through scientologist of proper jaw position. The deformity is not correctable by orthodontic alone and surgery is medically necessary.We are preforming this procedure to obtain a function jaw relationship. The planed surgery will be preformed in the OR of [facility] in [place], [place]. A 23 hour observation following the surgery is planned.This surgery should be considered medically necessary for the patient`s well-being. Medical Indication For Reconstructive Jaw Surgery The discrepancy between the upper and lower jaw has resulted in a significant skeletal deformity. I propose the following surgical procedures to correct this skeletal malocclusion. Sagittal Osteotomy CPT 63548 Surgical Splint CPT [address] interdental fixation CPT 00376 I had the opportunity to evaluate Ilana Pereira in my office for an obvious jaw deformity. Clinical and radiographic examination revealed a significant facial skeletal malocclusion which can not be correct by standard orthodontic management alone. As a result of this deformity a significant functional impairment in mastication exists. This is associated with a horizontal, vertical and transverse deformity of the maxilla and mandible. The patient has only 6 upper teeth and full dental/implant reconstruction on the lower. The dentist who placed the implants had no regard for her significant class II deep bite. The patient has the following diagnostic codes: Mandibular Retrognathism with deep bite M26.04 The discrepancy between the upper and lower jaws has resulted in the following significant skeletal deformity: It is impossible to reconstruct her dentition with her present dental facial deformity. My proposed treatment plan is as follows: Review case with her new dentist Dr Sneed. new models and CT scan need to determine condition of the remaining upper teeth some of the upper posterior implants are not stable Bilateral Sagittal osteotomy CPT 11953 final dental reconstruction once the jaw is lined up for ideal function As a result of the abnormal growth between the upper and lower jaws normal jaw function is not possible and this is contributing to the functional impairment. The goal of this proposed jaw surgery is to re-establish and improve the functional capacity of our patient`s abnormal bite and jaw function. Diagnosis------ Retrognathism severe with very deep almost 100 % deep bite Suggested treatment----- sagittal advancement Main Concern: "my chewing is getting worse, I continue to bite my lips and tongue, my bite is off," Security Assessor needs to correct lower arch due to it being narrow, however there is need for upper jaw to be made wider so the lower teeth can be up righted. Major Discrepancies:retrognathic lower jaw, poor dental occlusion lower/upper teeth\\ Major Discrepancies: A-P Retrognathism with severe deep bite of over 8 mm Vertical Deep bite of almost 100 % Transverse: none Based on the established guidelines from the [place] [employer] the severity of this deformity precludes adequate treatment through dental treatment alone. Medical necessity has been established by the significant deformity and the resulting functional impairment in mastication. Inability to close jaws into a normal relationship due to the severe skeletal deformity. Skeletal malocclusion due to the skeletal deformity resulting in a traumatic occlusion Chronic mastication difficulty due to the skeletal deformity. Soft tissue trauma to tongue, lips and cheeks due to the traumatic occlusion. X ray evaluation: Cephalometric analysis---Class II deep bite Panorex:---TMJ all WNL, failing implants upper jaw, fractured # 10, sinus all WNL, good bone anatomy, nerve position/sinus good. Treatment plan: Sagittal split advancement CPT 99159/ ICD10 M26.04 Surgical splints CPT 60618 Fixation wires CPT 07778 The above mentioned surgical procedure is not being preformed for any type of cosmetic reasons. The patient has a true jaw deformity that is preventing him/her from functioning in a normal manner. The proposed surgery is for functional rehabilitation of the skeletal alignment of the patient`s jaw. Oral Maxillofacial Surgery Exam Present Complaint: As a result of skeletal Class II deep bite and poor planing regarding the dental implants the case can not be completed. There is no space for the upper posterior teeth as a result of the skeletal class II and deep bite. Dr Sneed her new dentist suggested she see me to discuss options. tooth # 10 has now fractured to the bony crest and is no longer restorable--extraction needed with ? socket graft The upper right last implant failed and the upper left implants is failing Oral Exam: Finding-full reconstruction lower, implants stable Upper 6 remaining upper teeth not sure of prognosis or alf status- according to Ilana the plan now is to Remove the remaining natural teeth on upper and eventually place an implant retained upper bridge. Some of the upper implants are not stable--need to review which implants are failing and remove. No vertical space for reconstruction I will need to correct the vertical and horizontal with the OG surgery presently her skeletal relationship prevents dental scientologist. Imaging: Panorex: The Panorex X Ray was reviewed, there were no abnormal findings other then the implants that are failing and show bone loss There is a fractured # 10 prognosis of remaining upper teeth is questionable The TMJ are well positioned and no evidence of bony pathology. The sinus, supporting bone all WNL Evaluated the nerve/sinus relationship will ne done with a CT scan to allow finalization for treatment planning. The remaining upper teeth will be removed and 2 additional implants will be placed for a removable upper implant support denture. Soft tissue: floor of the mouth, tongue, hard/soft palate, posterior pharyngeal area all with in normal limits, no pathology or abnormal findings noted. No lesions noted that require follow up or Bx. Oral Care: Overall oral care is good Occlusion: Class Class II deep bite failing teeth and implants TMJ exam: No pop, clicking, pain, good ROM, No history of TMJ injury or dysfunction Periodontal exam: Healthy gingival tissue without evidence of periodontal pathology. She is maintaining her lower dental implant scientologist well Head/Neck exam: Neck is supple, FROM, Able to extend and flex neck w/o difficulty, no masses, no abnormalities, no airway issues, no evidence of sleep apnea. Treatment Plan: Insurance coverage regarding future orthognathic surgery (sagittal advancement) I have received from Dr Sneed, vidal, model surgery surgical guides--I did a general review with Dr Sneed a more extensive discussion will be done after we determine if there is coverage for the surgery. Set up with general anesthesia in hospital due to complexity of the procedure plan for future upper reconstruction I reviewed the treatment plan and consent with the patient. Understanding was expressed. Time was given for questions regarding the surgery, risks and post op care. Risks discussed: Bleeding,Pain,swelling,infection, dry socket, delayed healing, nerve injury to face,lips,tongue,chin area which could be permanent (rare). TMJ, jaw stiffness, change in bite (rare), ear pain (referred). Sinus problems like fistula or infection. Relationship of nerve/sinus and risk of jaw fracture associated with the OG surgery Home care reviewed: tooth brushing, rinsing, follow up care with Dr Ramirez. diet=[id number] dental. Discussed activity level, driving/work while on Rx pain Meds. Discussed alternative to treatment--procedure as planned, Do not do surgery Surgery to be set up once insurance is verified for coverage and Dr Ramirez reviews with Dr Sneed. Physical Exam Physical Exam ConstitutionalWD/WN, vitals as above EyesPERRL, conjunctivae normal, anicteric sclerae MouthClass II deep bite, fractured # 10, failing dental implants (upper) Neck tracheamidline, no thyromegaly Thyroid:normal thyroid Respiratorynormal respiratory effort, lungs clear to auscultation Auscultation: lungs clear to auscultation bilaterally Cardiovascular RRR, no murmur, no edema Rate/Rhythm: regular rate and regular rhythm Gastrointestinal (Abdomen)normal bowel sounds, soft, nontender, no hepatosplenomegaly Musculoskeletalno cyanosis or clubbing, extremities motor strength 5/5 Skinno rashes, warm and dry NeurologicPERRL, EOMI, accommodation nl, no face palsy, no dysarthria Cranial Nerves:sense of smell intact, PERRL, normal accommodation, EOM intact bilaterally, normal facial strength, tongue midline, normal gag reflex, normal hearing, able to rotate head bilaterally, able to elevate shoulders bilaterally, no nystagmus and symmetric palate elevation PsychiatricA+Ox3, euthymic affect Orientation: cooperative Lymphaticno cervical or axillary lymphadenopathy Review of System reviewed and updated February Constitutional:Constitutional: + fatigue; no fever, no chills, no sweats, no weight loss and no weight gainEyes: Eyes: + corrective lenses and + spots in vision; no diplopia, no decreased night vision, no eye pain and no problem reported Ear, Nose, Mouth, Throat:Ear, Nose, Mouth, Throat: + ear pain and + dysphagia; no hearing loss, no nasal discharge, no sore throat and no hoarseness Respiratory: Respiratory: + cough; no dyspnea, no dyspnea on exertion, no hemoptysis and no wheezingCardiovascular: Cardiovascular: no chest pain, no palpitations, no lightheadedness and no edema Gastrointestinal:Gastrointestinal: + constipation and + diarrhea/loose stools; no abdominal pain, no belching, no bloating, no heartburn, no nausea, no vomiting, no cramping, no fecal incontinence and no blood in stools Genitourinary (Female):Genitourinary (Female): no dysuria, no difficulty urinating, no urinary frequency, no urinary incontinence and no hematuria Musculoskeletal:Musculoskeletal: + back pain, + neck pain, + joint pain and + stiffnessIntegumentary: Integumentary: no boil, no rash, no changing lesions and no dry skinNeurologic: Neurologic: + tingling, + numbness, + dizziness and + headache(s); no seizure- like activity, no syncope and no memory lossPsychiatric:Psychiatric: no depression, no abnormal sleep pattern, no anxiety and no confusionEndocrine: Endocrine: no polydipsia, no polyphagia, no polyuria, no cold intolerance and no heat intolerance Hematologic / Lymphatic:Hematologic / Lymphatic: + easy bleeding and + easy bruising; no coagulopathy and no lymphadenopathy PFSH Medical History(Updated 11/11/21 @ 15:49 by Lamar Noel RN) Pilar cyst Surgical History(Updated 11/11/21 @ 15:49 by Lamar Noel RN) History of esophagogastroduodenoscopy (EGD) S/P excision of lipoma Family History(Updated 11/11/21 @ 16:01 by Lamar Noel RN) Other Colorectal cancer Diabetes Stroke Social History(Updated 11/11/21 @ 16:01 by Lamar Noel RN) Smoking Status: Never smoker Hx Alcohol Use: Yes Alcohol type: wine Alcohol Intake Frequency: Monthly or Less Hx Substance Use: No Preferred Language: Persian marital status: Single current occupational status: employed 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 How many Children do You have: 0 during the past year weight has: decreased > 10 lbs Results Reviewed Results Reviewed Results Common Labs: No Data to Display Nursing Visit Reasons:NEW Jaw surgery Consult Allergies No Known Allergies Allergy (Verified 11/11/21 15:48) Medications acetaminophen-caffeine 500 mg-65 mg tablet (Excedrin Tension Headache) 1 tab PO Q12H PRN 11/11/21 [History Confirmed 11/11/21] Allergies No Known Allergies Allergy (Verified 10/11/22 15:26) Medications rimegepant 75 mg disintegrating tablet (Nurtec ODT) 75 mg PO Q OTHER DAY 10/11/22 [History Confirmed 10/11/22] topiramate 25 mg tablet (Topamax) 25 mg PO DAILY 10/11/22 [History Confirmed 10/11/22] Coding Diagnoses 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 Failing dental implant M27.69 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 CPT Codes RECONST LWR JAW W/FIXATION - 74369 ([id number]) PREPARE FACE/ORAL PROSTHESIS - 64111 ([id number]) Discharge Data Procedures Performed Operation Date: 03/28/23 12:40 Actual Procedures p Sagittal Splint Lower Jaw Osteotomy, Placement of Surgical Splint and Fixation Wires, Removal Failing Dental Implants - Sean Ramirez, MARY Hospital Course (1) Encounter for pre-operative examination: (2) Failing dental implant: (3) Excessive horizontal overlap: (4) Mandibular hypoplasia: (5) Mandibular retrognathism: Plan Discharge note and Orthognathic surgery post op note at 12 hours AM Mar 29 Not out of bed, migraine headache, dizziness noted ROM improving Tissue tone, gingival tissue--excellent Occlusion very stable with a reproducible bite. No TMJ issues-pain, nose, pop. No nasal congestion or bleeding, septum well positioned. No sinus issues Facial alignment excellent No nerve issues Not ready to consider discharge as she is dizzy not out of bed, has a considerable migrans headache Not not very good. She has history of dysphagia and as a result of the oral surgery and intubation this is worse. Hopefully over time this will improve. At present Ilana is very lethargic, can`t sit up in bed or get out of bed. I will see her later this afternoon and decide on when she she meets criteria for discharge at present the criteria has not been met 4:45 pm Mar 29 I came to see Ilana this afternoon. She finally stopped felling nauseated with the use of low does Ativan. She STILL has not gotten out of bed or can sit up w/o dizziness. Her migraine has become less but still present that she needs pain control. Her swallowing is getting better but still not taken anything other then water. She will try some soft and full liquids later. She is not ready for discharge tonight due to nausea, poor oral intake, dizziness, not able to sit up or get out of bed. I will keep her this evening and re evaluate in the morning. I discussed trying to drink as much as possible, try to sit up in bed and ask for help regarding getting out of bed and going to the bathroom. Hopefully as her N/V and Migraines improve Ilana will be able to take more fluids and fell comfortable to get out of bed and ambulate. From the surgical point of view -stable occlusion, no paraesthesia, excellent occlusion, swelling as expected. Mar 30 Ilana is doing much better today she had a better sleep, out of bed and walking, eating well and taking PO fluids,no N/V no Migrains, pain controlled. I reviewed the D/C instruction OK for discharge this morning. Follow up on Apr 06 in my office. 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
== END 2023-03-30 10:21 | disposition home or self-care (01) ==
LOC: ASU 10:52 → 3W 10:52